=== PATIENT | male | born 1975 | race Caucasian/White ===

== ENCOUNTER 2017-08-18 08:00 | Outpatient (CLI) | payer MEDICAID ==
[2017-08-18 19:22] LABS: HB2 TOTAL 16.2 g/dL; HEMOGLOBIN A1C 1.15 g/dL; HEMOGLOBIN A1C % 8.6 % (4.6-6.2)
== END 2017-08-18 08:01 | disposition home or self-care (01) ==
LOC: LAB.N 08:00
PROVIDERS: ATTEND Physician Assistant Medical
DX: E11.9 Type 2 diabetes mellitus without complications (principal)
CPT/HCPCS: 36415; 83036

== ENCOUNTER 2017-11-18 11:35 | Outpatient (CLI) | payer MEDICAID ==
[2017-11-18 19:50] LABS: HEMOGLOBIN A1C 1.32 g/dL; HEMOGLOBIN A1C % 9.7 % (4.6-6.2)
== END 2017-11-18 11:36 ==
LOC: LAB.N 11:35
PROVIDERS: ATTEND Physician Assistant Medical
DX: E11.9 Type 2 diabetes mellitus without complications (principal)
CPT/HCPCS: 36415; 83036

== ENCOUNTER 2018-03-04 08:00 | Outpatient (CLI) | payer MEDICAID ==
[2018-03-04 13:36] LABS: HB2 TOTAL 18.1 g/dL; HEMOGLOBIN A1C 1.33 g/dL; HEMOGLOBIN A1C % 8.9 % (4.6-6.2)
== END 2018-03-04 23:59 | disposition home or self-care (01) ==
LOC: LAB.N 08:00
PROVIDERS: ATTEND Physician Assistant Medical
DX: E11.65 Type 2 diabetes mellitus with hyperglycemia (principal)
CPT/HCPCS: 36415; 83036

== ENCOUNTER 2018-03-04 09:34 | Inpatient (IN) | payer MEDICAID ==
[2018-03-04] MEDS ORDERED: IOVERSOL 320 100 ML VIAL IVP ONE ×2 (10:00→11:15)
[2018-03-04 10:02] LABS: BASOPHILS # (AUTO) 0.1 10^3/uL (0.0-0.1); BASOPHILS % (AUTO) 0.5 %; EOSINOPHILS % (AUTO) 0.1 %; HGB - HEMOGLOBIN 16.3 g/dL (14.0-18.0); LYMPHOCYTES # (AUTO) 1.8 10^3/uL (1.5-3.5); LYMPHOCYTES % (AUTO) 8.4 %; MEAN CORPUSCULAR HEMOGLOBIN 28.7 pg (27.0-31.0); MEAN CORPUSCULAR HGB CONC 33.9 g/dL (32.0-36.0); MEAN CORPUSCULAR VOLUME 84.5 fL (80.0-94.0); MEAN PLATELET VOLUME 7.8 fL (7.4-11.4); MONOCYTES # (AUTO) 1.6 10^3/uL (0.0-1.0); MONOCYTES % (AUTO) 7.4 %; NEUTROPHILS # (AUTO) 17.7 10^3/uL (1.5-6.6); NEUTROPHILS % (AUTO) 83.6 %; PLT - PLATELET COUNT 321 10^3/uL (130-450); RED BLOOD COUNT 5.68 10^6/uL (4.70-6.10); RED CELL DISTRIBUTION WIDTH 13.1 % (12.0-15.0); WHITE BLOOD COUNT 21.2 x10^3/uL (4.8-10.8)
[2018-03-04 10:18] LABS: GLUCOSE, URINE (UA) >=1000 mg/dL (NEGATIVE); KETONES,URINE (UA) 15 mg/dL (NEGATIVE); LEUKOCYTE ESTERASE, URINE NEGATIVE (NEGATIVE); NITRITE,URINE NEGATIVE (NEGATIVE); OCCULT BLOOD,URINE LARGE (NEGATIVE); PH,URINE 5.5 PH (5.0-7.5); PROTEIN,URINE >=300 mg/dL (NEGATIVE); UROBILINOGEN,URINE 0.2 (NORMAL) E.U./dL (NORMAL)
[2018-03-04 10:19] LABS: CLARITY,URINE CLEAR (CLEAR)
[2018-03-04 10:21] LABS: BILIRUBIN,URINE NEGATIVE (NEGATIVE); ICTOTEST,URINE NEGATIVE
[2018-03-04 10:31] LABS: BACTERIA,URINE Few /HPF (None Seen); CASTS, URINE 0-2 Fine Granular /LPF; SQUAMOUS EPITHELIAL CELL,UR FEW Squamous (<= Few)
[2018-03-04 10:33] LABS: ALBUMIN 4.2 g/dL (3.2-5.5); ALBUMIN/GLOBULIN RATIO 1.1 (1.0-2.2); BILIRUBIN,TOTAL 0.9 mg/dL (0.2-1.0); CALCIUM 8.5 mg/dL (8.5-10.3); TOTAL PROTEIN 8.1 g/dL (6.7-8.2)
[2018-03-04] MEDS ORDERED: SODIUM CHLORIDE 0.9% 1,000 ML IV ONE (10:47)
[2018-03-04] MEDS ORDERED: POTASSIUM CHLOR 10 MEQ/100 ML 10 MEQ/100 ML BAG IV ONE (10:47)
--- NOTE | 2018-03-04 11:56 | CT Report ---
Reason: Mid-to-RLQ abdominal pain. Procedure Date: 03/04/2018 Accession Number: [id number] / [id number] Procedure: CT - Abdomen/Pelvis W/ CPT Code: FULL RESULT: EXAM: CT ABDOMEN AND PELVIS EXAM DATE: 03/04/2018 10:49 AM. CLINICAL HISTORY: [id number] lower quadrant abdominal pain. COMPARISONS: None. TECHNIQUE: Routine helical CT imaging was performed through the abdomen and pelvis. IV contrast: OPTI 320 100mL. Enteric contrast: No. Reconstructions: Coronal and sagittal. In accordance with CT protocol optimization, one or more of the following dose reduction techniques were utilized for this exam: automated exposure control, adjustment of mA and/or KV based on patient size, or use of iterative reconstructive technique. FINDINGS: Lung Bases: Dependent changes. Liver: Normal. No masses. Gallbladder/Bile Ducts: Cholelithiasis, 2 large calculi directly visualized without overt wall thickening or pericholecystic fat stranding centered about the gallbladder. No intrahepatic or extrahepatic biliary ductal dilation. Spleen: Normal. Pancreas: Normal enhancement pattern. Adrenal Glands: Normal. Kidneys: Bilateral renal hypodensities which are too small to characterize and a likely left renal cyst. Peritoneal Cavity/Bowel: There is free intra-abdominal fluid centered about the pancreaticoduodenal axis with additional small quantity of free fluid seen in the dependent pelvis, near the spleen and along the left paracolic gutter. No free air. No pathologic appearing lymphadenopathy. No bowel obstruction. Visualized portions of the appendix are normal. Pelvic Organs: Small quantity of free pelvic fluid. Vasculature: No aneurysms or other significant abnormality. Bones: No significant abnormality. Other: None. IMPRESSION: Free fluid predominantly centered about the duodenum and pancreas. Correlate to possible acute pancreatitis. No evidence of pancreatic necrosis or fluid collection by CT at this time. RADIA The above findings of uncomplicated acute pancreatitis were discussed with Benitez Tubbs by Dr. Lai Cobian at 11:55 hrs on 03/04/18.
[2018-03-04] MEDS ORDERED: ONDANSETRON 4 MG/2 ML VIAL IVP STA (12:18)
[2018-03-04] MEDS ORDERED: MORPHINE 2 MG/ML CARPUJECT IVP STA ×2 (12:18→15:34)
--- NOTE | 2018-03-04 12:23 | ED Physician Documentation ---
PD HPI ABD PAIN - Stated complaint Stated Complaint: ABD PX - Chief complaint Chief Complaint: Abd Pain - History obtained from History obtained from: Patient - History of Present Illness Timing - onset: Yesterday Timing - details: Still present Quality: Pain Location: Periumbilical Radiation: Upper back Associated symptoms: Vomiting (once) Similar symptoms before: Has not had sx before - Additional information Additional information: The patient is a 42-year-old male who presents with periumbilical abdominal pain that started yesterday after eating a tuna sandwich, and has persisted since that time. The pain radiates to his midback. He had one episode of vomiting, and continues to have nausea. He feels "bloated." He also reports having one episode of watery diarrhea. He denies fever or dysuria. He denies history of similar symptoms in the past. He has had no abdominal surgery. His past medical history is significant for diabetes and a previous CVA. He denies alcohol. Review of Systems Constitutional: denies: Fever Nose: denies: Congestion Throat: denies: Sore throat Cardiac: denies: Chest pain / pressure Respiratory: denies: Dyspnea, Cough GI: reports: Abdominal Pain, Nausea, Vomiting, Diarrhea : denies: Dysuria Skin: denies: Rash Musculoskeletal: reports: Back pain (midback). denies: Extremity pain Neurologic: denies: Focal weakness, Numbness, Headache PD PAST MEDICAL HISTORY - Past Medical History Past Medical History: Yes Neuro: CVA Endocrine/Autoimmune: Type 2 diabetes - Past Surgical History Past Surgical History: No - Present Medications Home Medications: Ambulatory Orders Medication Instructions Recorded Confirmed Atorvastatin Calcium [Lipitor] 80 mg PO QPM 03/04/18 03/04/18 Lisinopril 40 mg PO DAILY 03/04/18 Sitagliptin Phosphate [Januvia] 100 mg PO DAILY 03/04/18 03/04/18 metFORMIN [Glucophage] 1,000 mg PO BID 03/04/18 03/04/18 - Allergies Allergies/Adverse Reactions: Allergies Allergy/AdvReac Type Severity Reaction Status Date / Time No Known Drug Allergies Allergy Verified 03/04/18 09:43 - Social History Does the pt smoke?: No Smoking Status: Never smoker Does the pt drink ETOH?: No Does the pt have substance abuse?: No - Immunizations Immunizations are current?: Yes PD ED PE NORMAL - Vitals Vital signs reviewed: Yes (hypertensive) - General General: Alert and oriented X 3, Well developed/nourished, Other (Appears older than stated age.) - HEENT HEENT: Atraumatic, Moist mucous membranes - Neck Neck: No adenopathy, No JVD - Cardiac Cardiac: RRR - Respiratory Respiratory: No respiratory distress, Clear bilaterally - Abdomen Abdomen: Normal bowel sounds, Soft, Other (Rotund abdomen with diffuse discomfort to palpation, without focal tenderness or rebound.) - Back Back: No CVA TTP - Derm Derm: No rash - Extremities Extremities: No edema, No calf tenderness / cord - Neuro Neuro: Alert and oriented X 3, No motor deficit, Normal speech Results - Vitals Vitals: Vital Signs - 24 hr 03/04/18 03/04/18 03/04/18 09:38 11:13 12:30 Temperature 36.2 C L Heart Rate 108 H 88 87 Respiratory 16 16 16 Rate Blood Pressure 154/108 H 165/116 H 163/99 H O2 Saturation 97 96 96 03/04/18 15:25 Temperature Heart Rate 88 Respiratory 16 Rate Blood Pressure 146/93 H O2 Saturation 95 Oxygen O2 Source Room air - Labs Labs: Laboratory Tests 03/04/18 03/04/18 03/04/18 09:55 09:55 10:02 WBC 21.2 H RBC 5.68 Hgb 16.3 Hct 48.0 MCV 84.5 MCH 28.7 MCHC 33.9 RDW 13.1 Plt Count 321 MPV 7.8 Neut # (Auto) 17.7 H Lymph # (Auto) 1.8 [place] # (Auto) 1.6 H Eos # (Auto) 0.0 Baso # (Auto) 0.1 Absolute Nucleated RBC 0.01 Nucleated RBC % 0.0 Sodium 137 Potassium 3.1 L Chloride 98 L Carbon Dioxide 27 Anion Gap 12.0 BUN 23 H Creatinine 1.0 Estimated GFR (MDRD) 82 L Glucose 255 H Calcium 8.5 Total Bilirubin 0.9 AST 55 H ALT 117 H Alkaline Phosphatase 104 Total Protein 8.1 Albumin 4.2 Globulin 3.9 Albumin/Globulin Ratio 1.1 Lipase 780 H Urine Color DARK YELLOW Urine Clarity CLEAR Urine pH 5.5 Ur Specific [place] >=1.030 H Urine Protein >=300 Urine Glucose (UA) >=1000 H Urine Ketones 15 H Urine Occult Blood LARGE H Urine Nitrite NEGATIVE Urine Bilirubin NEGATIVE Urine Urobilinogen 0.2 (NORMAL) Ur Leukocyte Esterase NEGATIVE Urine RBC 6-10 H Urine WBC 0-3 Ur Squamous Epith Cells FEW Squamous Urine Bacteria Few Urine Casts 0-2 Fine Granular Ur Microscopic Review INDICATED Urine Culture Comments NOT INDICATED - Rads (name of study) CT abd/pelvis w/IV contrast Radiology: Prelim report reviewed, EMP read contemporaneously, See rad report (Free fluid predominantly centered about the duodenum and pancreas. Correlate to possible acute pancreatitis. No evidence of pancreatic necrosis or fluid collection by CT at this time.) RUQ U/S Radiology: Prelim report reviewed, EMP read contemporaneously, See rad report (Cholelithiasis without intrahepatic or extrahepatic ductal dilitation.) MRCP Radiology: Prelim report reviewed, See rad report (Moderately edematous pancreatitis. Cholelithiasis without evidence of acute cholecystitis. No biliary ductal dilitation or choledocholithiasis.) PD MEDICAL DECISION MAKING - ED course Complexity details: reviewed results, re-evaluated patient, considered differential, d/w patient, d/w forestry consultant ED course: The patient's presentation is significant for acute pancreatitis, with a lipase of 780. CT scan of the abdomen and pelvis reveals edematous pancreas and cholelithiasis. An MRCP reveals cholelithiasis without evidence of biliary ductal dilatation or choledocholithiasis. Chemistry panel reveals normal bilirubin of 0.9. His potassium is low at 3.1. Treatment in the emergency department included administration of normal saline 1 L IV, ondansetron 4 mg IV, morphine 2 mg IV 2, and supplemental potassium 10 mEq IV. I discussed his condition with Dr. Joyner who defers to medicine service for hospitalization. I discussed his condition with Dr. Malone, who accepts him for further evaluation and treatment. Departure - Departure Disposition: 66 [facility] DC/Xfer Clinical Impression: Hypokalemia Pancreatitis Qualifiers: Chronicity: acute Pancreatitis type: unspecified pancreatitis type Acute pancreatitis complication: unspecified Qualified Code(s): K85.90 - Acute pancreatitis without necrosis or infection, unspecified Cholelithiasis Qualifiers: Cholelithiasis location: gallbladder Cholecystitis presence: without cholecystitis Biliary obstruction: with biliary obstruction Qualified Code(s): K80.21 - Calculus of gallbladder without cholecystitis with obstruction Condition: Stable Discharge Date/Time: 03/04/18 17:00
--- NOTE | 2018-03-04 13:48 | Ultrasound Report ---
Reason: Acute pancreatitis; ? gallstones. Procedure Date: 03/04/2018 Accession Number: [id number] / [id number] Procedure: US - Abdomen Limited CPT Code: FULL RESULT: EXAM: ABDOMEN ULTRASOUND LIMITED, RUQ EXAM DATE: 03/04/2018 01:14 PM. CLINICAL HISTORY: Acute pancreatitis; ? gallstones. COMPARISON: None. TECHNIQUE: Real-time scanning was performed with static images obtained. FINDINGS: Liver: Normal in size and echotexture. 16.3 cm. Main portal vein flow: Hepatopetal. Gallbladder: Large gallstone. No wall thickening or localized tenderness. Biliary System: CBD measures 4.7 mm. No intrahepatic or extrahepatic ductal dilatation. Other: Unremarkable right kidney. Pancreas not well seen. Limited study due to patient habitus and bowel gas. IMPRESSION: Cholelithiasis. RADIA
--- NOTE | 2018-03-04 15:49 | MRI Report ---
Reason: Pancreatitis with gallstones. Procedure Date: 03/04/2018 Accession Number: [id number] / [id number] Procedure: MRI - MRCP W/O CPT Code: FULL RESULT: EXAM: MR ABDOMEN WITHOUT CONTRAST (MR CHOLANGIOPANCREATOGRAPHY) EXAM DATE: 03/04/2018 03:18 PM. CLINICAL HISTORY: Pancreatitis with gallstones. COMPARISON: ABDOMEN LIMITED 03/04/2018 1:14 PM ABDOMEN/PELVIS W/ 03/04/2018 10:37 AM. TECHNIQUE: Multiplanar breath-hold T1 and T2 sequences obtained through the abdomen on an MR scanner. Dedicated 2D and 3D MRCP sequences obtained through the biliary and pancreatic ducts. No intravenous contrast given. FINDINGS: Lung Bases: The lung bases are clear. Liver: The liver has normal size, morphology and signal. No evidence of mass. The intrahepatic bile ducts appear normal. CBD: The extrahepatic ducts appear normal. The CBD is 5 mm in diameter. No choledocholithiasis. Gallbladder: Normal size. 3 dominant gallstones with the largest measuring 3 cm. There are some tiny dependent gallstones in the fundus. There is no bladder wall thickening or pericholecystic edema. Pancreas: Normal in size and contour. Lacy edema throughout the pancreas. The pancreatic duct measures 1 mm in diameter and appears normal with no stone or stricture. Moderate diffuse peripancreatic edema. Spleen: The spleen appears normal. Kidneys and Adrenals: The kidneys appear normal with no mass or hydronephrosis. There are small cysts in the kidneys. The adrenals appear normal. Bowel: The small bowel and colon appear normal with no inflammation or obstruction. Retroperitoneum: No lymphadenopathy. Moderate peripancreatic edema with extension to the left greater than right anterior pararenal fascia. Peritoneum: No roxanna ascites. Vasculature: The abdominal aorta normal in size. Body wall and bones: Unremarkable. IMPRESSION: 1. Moderate edematous pancreatitis. 2. Cholelithiasis without evidence of acute cholecystitis. 3. No biliary ductal dilatation or choledocholithiasis. RADIA
[2018-03-04] MEDS ORDERED: ONDANSETRON ODT 4 MG TABLET TL PRN (16:25)
[2018-03-04] MEDS ORDERED: ONDANSETRON 4 MG/2 ML VIAL IVP PRN (16:25)
[2018-03-04] MEDS ORDERED: PROCHLORPERAZINE 10 MG/2 ML VIAL IVP PRN (16:25)
[2018-03-04] MEDS ORDERED: POTASSIUM CHLORIDE INJ 40 MEQ in SODIUM CHLORIDE 0.9% 480 ML IV ONE (16:46)
--- NOTE | 2018-03-04 16:47 | HISTORY & PHYSICAL EXAMINATION ---
Chief Complaint - Chief Complaint Chief Complaint: abd pain History of Present Illness - Admitted From Admitted From:: HOme/ER - History Obtained From Records Reviewed: [facility] History obtained from: Patient and fiance Exam Limitations: memory and word finding at times - History of Present Illness HPI Comment/Other: He is a 42-year-old white male who suffered a stroke in June 2016 while working in [facility]. Since that time he has had word finding difficulties, memory problems, but is able to ambulate and take care of himself. He moved from the [facility] June [facility]. He is with his fiance, and they moved in with her sister because the cost of living was too high and [place]. They they hope to get better benefits, and a safer place to live. While they feel grateful that they are able to live here, able to live with their sister, the finances are getting difficult and difficult. Social Security has denied him because I do not feel his stroke is severe enough and that he could go to work. 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 He does not have any history of gallstones. He does not drink. He ate a tuna sandwich yesterday afternoon, and about an hour later noticed that he was having periumbilical pain. Indigestion. The pain became stronger and stronger and radiated to his epigastrium and right upper quadrant and to his back. The back pain is just killing him he tells me. His abdomen feels more and more distended and bloated. He feels like he constantly has to belch. He has nausea. But only one episode of vomiting. He denies fever, chills. There is been no change in the color of his stool. He has no blood in his stool. He was seen by Dr. Tubbs in the ER. Temperature was 36.2. Heart rate was 108. Blood pressure 154/108. Respirations 16 and unlabored and he is 97% on room air. He had a tender right upper quadrant and epigastrium. Lipase was 780. AST was 55, ALT 117. Total bili 0.9. White cell count is 21.[address] Tubsb spoke to general surgery, Dr. Joyner. And abdomen pelvis CT shows cholelithiasis with 2 large calculi visualized but no overt wall thickening or ambrosio-cholecystic fat stranding. Spleen was normal. There is free intra- abdominal fluid centered around the pancreatic O duodenal access with additional small quantity of free fluid seen in the dependent pelvis, near the spleen and along the left paracolic gutter. No free air. No aneurysms. The bowel looked normal. It looks like pancreatitis. Abdominal ultrasound shows a common bile duct is 4.7 mm. Gallbladder has a large gallstone. No wall thickening or localized tenderness. An MRCP shows 3 gallstones in the gallbladder measuring 3 cm. Some tiny dependent gallstones in the fundus. No roxanna ascites. Moderate edematous pancreatitis. No biliary ductal dilatation or choledocholithiasis. General surgery feels he is not a surgical candidate at this time. He is brought in as gallstone pancreatitis. He needs to be kept n.p.o., treat nausea and pain, and I will start on single agent Zosyn because of the elevated white cell count. History - Past Medical History Cardiovascular: reports: Hypertension, High cholesterol Neuro: reports: CVA (In [facility]. June 2016. Has left-sided plegia of the arm much worse than the leg. Much of his leg strength is recovered. Has word finding difficulties, slight left facial droop.) Endocrine/Autoimmune: reports: Type 2 diabetes GI: reports: GERD : reports: None HEENT: reports: Other (Wears reading glasses for cheaters. 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 Is getting harder and harder to stay hopeful in view of the fact that his finances are getting worse.), Anxiety Musculoskeletal: reports: Osteoarthritis Derm: reports: None MRSA Hx?: No - Family & Social History Family History Comment/Other: Mom and dad are both in their 70s. Both of them have diabetes. But there is no high blood pressure, cancer, heart attack, or stroke in them. One sister is completely healthy. No diabetes, heart attack, stroke, hypertension. 3 children are healthy. Living arrangement: At home Living Situation: With spouse/s.o., Other (With fiancs sister) Social History Notes: He was born and raised in the [facility]. 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 He is living with his fiance is significant other and hope to get soon. They moved from the [place] area to be here in about June 2017. He had a stroke and renal in June 2016 and was disabled and could no longer work. It is been difficult for him to get disability. Finances are a definite issue. He started smoking at the age of 17 and smoked up to 1 pack/day. Gradually start reducing and his last cigarette was with a stroke in 2016. At that point he was 1 cigarette a day. He has no history of alcohol abuse. He is never done recreational substance abuse. - Substance History Use: Uses substance without health or social issues: NONE Abuse: Recurrent use of substance despite neg consequences: NONE Dependence: Experiences withdrawal or developed tolerances: NONE - POLST Patient has POLST: No POLST Status: Full Code Meds/Allgy - Home Medications Home Medications: Ambulatory Orders Medication Instructions Recorded Confirmed Atorvastatin Calcium [Lipitor] 80 mg PO QPM 03/04/18 03/04/18 Lisinopril 40 mg PO DAILY 03/04/18 Sitagliptin Phosphate [Januvia] 100 mg PO DAILY 03/04/18 03/04/18 metFORMIN [Glucophage] 1,000 mg PO BID 03/04/18 03/04/18 - Allergies Allergies/Adverse Reactions: Allergies Allergy/AdvReac Type Severity Reaction Status Date / Time No Known Drug Allergies Allergy Verified 03/04/18 09:43 Review of Systems - Constitutional Constitutional: denies: Fatigue, Fever, Chills, Malaise, Weight gain, Weight loss - Eyes Eyes: reports: Vision loss. denies: Pain, Irritation, Amaurosis, Blurred vision - Ears, Nose & Throat Ears, Nose & Throat: reports: Nasal congestion (Constant for 2-3 years), Postnasal drainage (Constant for 2-3 years), Dentures (His dentures broke before he got here. So he has no teeth.). denies: Ear pain, Hearing loss, Hearing aids, Tinnitus, Sore throat, Hoarseness - Cardiovascular Cariovascular: denies: Irregular heart rate, Palpitations, Chest pain, Edema, Lightheadedness, Syncope, Exertional dyspnea - Respiratory Respiratory: denies: Cough, Sputum production, Wheezing, Snoring, Hemoptysis, Orthopnea, SOB at rest - Gastrointestinal Gastrointestinal: reports: Abdominal pain, Abdominal distention, Nausea, Vomiting, Other (All of the symptoms were today.) - Genitourinary Genitourinary: denies: Dysuria, Frequency, Urgency, Hematuria - Musculoskeletal Musculoskeletal: reports: Back pain (Today.), Stiffness (Left shoulder, elbow, and arm from his stroke. He is supposed to be getting PT and OT starting Wednesday) - Integumentary Integumentary: denies: Rash, Pruritis - Neurological Neurological: reports: Focal weakness (Minimal, left leg. Still 50% loss left arm and hand.), Headache (Constant sinus headache), Memory problems (Residual from stroke.), Pre-existing deficit (Left upper extremity plegia residual from left stroke.), Slurred speech (Residual from stroke.). denies: General weakness, Seizures - Psychiatric Psychiatric: reports: Depression. denies: Suicidal, Delusions, Hallucinations, Homicidal - Endocrine Endocrine: denies: Polyuria, Polydypsia, Polyphagia - Hematologic/Lymphatic Hematologic/Lymphatic: denies: Anemia, Bruising, Petechiae, Blood clots Prior Level of Functionality: He is still ambulatory and independent to feed himself, dress himself. He can no longer drive. Because he has problems with memory and cognition, his fiance takes care of all the financial things. He does not use a cane or a walker. Exam - Vital Signs Reviewed Vital Signs: Yes Vital Signs: Vital Signs x48h Temp Pulse Resp BP Pulse Ox 03/04/18 16:45 36.5 C 83 16 159/88 H 96 03/04/18 15:25 88 16 146/93 H 95 03/04/18 12:30 87 16 163/99 H 96 03/04/18 11:13 88 16 165/116 H 96 03/04/18 09:38 36.2 C L 108 H 16 154/108 H 97 - Physical Exam General Appearance: positive: Alert, Moderate distress (His abdominal pain in his epigastrium that radiates straight through to his back comes and goes. He will grimace with pain, and grunts a little bit sometimes.), Other (Middle-aged white male who looks older than his stated age, bearded, wearing reading glasses, slightly slurred speech and a left facial droop.) Eyes Bilateral: positive: PERRL, EOMI ENT: positive: Dry mucous membranes Neck: positive: No JVD. negative: Stiff neck, Carotid bruit Respiratory: positive: Chest non-tender. negative: Wheezes, Rales, Rhonchi Cardiovascular: positive: Regular rate & rhythm, Systolic murmur. negative: Gallop/S4, Friction rub Peripheral Pulses: positive: 1+ Abdomen: positive: No organomegaly, Tenderness (Epigastrium and left upper quadrant, mild right upper quadrant. Nothing in the lower abdomen), Other (Hypoactive bowel sounds. Slight bloating and distention diffusely.). negative: Guarding, Rebound, Hepatomegaly, Splenomegaly Skin: positive: Warm, Dry Extremities: positive: Full ROM, No pedal edema Neurologic/Psychiatric: positive: Oriented x3, Facial droop, Slurred/abnml speech. negative: Motor nml (Left upper extremity weakness. He is at a 3/5+. Right extremity is normal. Left leg is 4-/5+. Right leg is 5+/5+.) Reflexes: Bicep (R): 1+, Bicep (L): 0, Knee (R): 1+, Knee (L): 0, Ankle (R): 0, Ankle (L): 0 Conclusion/Plan - Problem List (1) Gallstone pancreatitis Conclusion/Plan: Patient presents as epigastric pain radiating through his back, with some nausea. Pain is been agonizing in his back. No fever, no chills. On lab work he has elevated white cell count, elevated liver enzymes, elevated lipase. An evaluation for gallstone pancreatitis, it looks like he may have passed a stone and there is nothing in the common bile duct. General surgery is aware of the patient. Plan: Calculate [place]'s criteria in the morning Inpatient status Single agent Zosyn therapy because of the elevated white cell count N.p.o. IV fluids for hydration Antiemetics for nausea Opioids for pain All of this was discussed with the patient and his fiance. Anatomy was drawn on the board. Explained to him twice. He definitely has problems with cognition and understanding. 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 He will placed on sliding scale insulin. No metformin at this time until able to eat or drink normally. 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 I will resume medication with either IV Lopressor IV ROMINA inhibitor if his blood pressure rises to the point of needing treatment. All day long he has been hypertensive at 140s-160s. As such we will start IV lisinopril/enalapril. Qualifiers: Hypertension type: essential hypertension Qualified Code(s): I10 - Essential (primary) hypertension (4) History of hemorrhagic stroke with residual hemiparesis Conclusion/Plan: As well as speech. Cognitive deficit. Plan: Resume aspirin and statin when he is able to take p.o. Will ask PT and OT to see him if they can help him with his hand therapy while he is here. He is very anxious about starting that maintaining that. He was already scheduled in the outpatient setting to start 2 days from now. Social work consult. I do not know what services he has obtained. See social work and help him with disability status, and other services that may help him. (5) Full code status Conclusion/Plan: He says that at this time he still wants to keep ongoing even if he he has further stroke, or is a disabled to end up living in a shelter. He understands what a full code means after explained to him CPR, intubation, chest compressions, cardioversion. He has never thought about quality of life, never thought about what it would be like to be severely disabled and living in a shelter. He and his partner will have conversations in the next few weeks as they trying to find quality of life and what makes him happy and what he likes to do. He will then sure that with his primary care provider. (6) Hypokalemia Conclusion/Plan: Supplement IV - Lab Results Fish Bones: 03/04/18 09:55 03/04/18 09:55 - Diagnostic Imaging Results Diagnostic Imaging Results: positive: Final report reviewed Core Measures - Anticipated LOS I expect patient to be DC'd or transferred within 96 hours.: Yes - DVT/VTE - Prophylaxis VTE/DVT Device ordered at admit?: Yes
[2018-03-04] MEDS: SODIUM CHLORIDE 0.9% 1,000 ML IV SCH (17:20)
[2018-03-04] MEDS: PIPERACILLIN/TAZOBACTAM 3.375 GM in SODIUM CHLORIDE 0.9% MINIBAG 100 ML IV SCH (17:20)
[2018-03-04] MEDS: MORPHINE 2 MG/ML CARPUJECT IVP PRN ×3 (17:21→21:42)
[2018-03-04] MEDS: INSULIN REGULAR HUMAN 100 UNIT/1 ML 10 ML MDV SUBQ SCH (17:22)
[2018-03-04] MEDS: SODIUM CHLORIDE FLUSH 0.9% 10 ML SYRINGE IVP SCH (17:22)
[2018-03-04] MEDS: SODIUM CHLORIDE FLUSH 0.9% 10 ML SYRINGE IVP PRN (19:35)
[2018-03-05] MEDS: SODIUM CHLORIDE 0.9% 1,000 ML IV SCH
[2018-03-05] MEDS: MORPHINE 2 MG/ML CARPUJECT IVP PRN ×6 (00:14→18:46)
[2018-03-05] MEDS: PIPERACILLIN/TAZOBACTAM 3.375 GM in SODIUM CHLORIDE 0.9% MINIBAG 100 ML IV SCH ×5 (00:19→22:24)
[2018-03-05] MEDS: INSULIN REGULAR HUMAN 100 UNIT/1 ML 10 ML MDV SUBQ SCH ×4 (00:26→18:23)
[2018-03-05] MEDS: SODIUM CHLORIDE FLUSH 0.9% 10 ML SYRINGE IVP SCH ×4 (01:28→23:51)
[2018-03-05 06:14] LABS: BASOPHILS # (AUTO) 0.1 10^3/uL (0.0-0.1); BASOPHILS % (AUTO) 0.4 %; EOSINOPHILS % (AUTO) 0.1 %; HGB - HEMOGLOBIN 14.1 g/dL (14.0-18.0); LYMPHOCYTES # (AUTO) 1.2 10^3/uL (1.5-3.5); LYMPHOCYTES % (AUTO) 5.7 %; MEAN CORPUSCULAR HEMOGLOBIN 28.6 pg (27.0-31.0); MEAN CORPUSCULAR HGB CONC 32.9 g/dL (32.0-36.0); MEAN CORPUSCULAR VOLUME 87.1 fL (80.0-94.0); MEAN PLATELET VOLUME 7.7 fL (7.4-11.4); MONOCYTES # (AUTO) 1.8 10^3/uL (0.0-1.0); MONOCYTES % (AUTO) 8.3 %; NEUTROPHILS # (AUTO) 18.8 10^3/uL (1.5-6.6); NEUTROPHILS % (AUTO) 85.5 %; PLT - PLATELET COUNT 246 10^3/uL (130-450); RED BLOOD COUNT 4.92 10^6/uL (4.70-6.10); WHITE BLOOD COUNT 21.9 x10^3/uL (4.8-10.8)
[2018-03-05] MEDS: SODIUM CHLORIDE FLUSH 0.9% 10 ML SYRINGE IVP PRN (06:19)
[2018-03-05 06:21] LABS: ALBUMIN 3.2 g/dL (3.2-5.5); BILIRUBIN,TOTAL 1.1 mg/dL (0.2-1.0); CALCIUM 7.2 mg/dL (8.5-10.3); CREATININE 1.1 mg/dL (0.6-1.2); TOTAL PROTEIN 6.4 g/dL (6.7-8.2)
[2018-03-05] MEDS ORDERED: POTASSIUM CHLOR 10 MEQ/100 ML 10 MEQ/100 ML BAG IV ONE ×2 (06:55→09:00)
[2018-03-05 07:00] LABS: PLATELET ESTIMATE, MANUAL NORMAL (130-450,000) (NORMAL)
[2018-03-05 07:01] LABS: RBC MORPHOLOGY (MULTIPLE) NORMAL APPEARANCE (NORMAL)
[2018-03-05] MEDS: ENALAPRILAT 1.25 MG/ML VIAL IVP SCH ×4 (09:35→23:51)
--- NOTE | 2018-03-05 09:47 | CONSULTATION NOTE ---
Referring Provider Consult Date: 03/05/18 Chief Complaint - Chief Complaint Chief Complaint: abdominal pain History of Present Illness - History of Present Illness HPI Comment/Other: 42 yo man with h/o a hypertensive hemorrhagic stroke and controlled diabetes, presented to the ER with sudden onset abdominal pain. He was found to have pancreatitis. He is not a drinker and has numerous gallstones in the GB. An MRCP confirmed no stones in the ducts. Admitted for medical managament of his pancreatitis. States today he is feeling better, but still having some pain. History - Past Medical History Cardiovascular: reports: Hypertension, High cholesterol Neuro: reports: CVA Endocrine/Autoimmune: reports: Type 2 diabetes GI: reports: GERD : reports: None HEENT: reports: Other (Wears reading glasses for cheaters. 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 Is getting harder and harder to stay hopeful in view of the fact that his finances are getting worse.), Anxiety Musculoskeletal: reports: Osteoarthritis Derm: reports: None MRSA Hx?: No - Family & Social History Family History Comment/Other: Mom and dad are both in their 70s. Both of them have diabetes. But there is no high blood pressure, cancer, heart attack, or stroke in them. One sister is completely healthy. No diabetes, heart attack, s troke, hypertension. 3 children are healthy. Living arrangement: At home Living Situation: With spouse/s.o., Other (With fiancs sister) Social History Notes: He was born and raised in the [facility]. 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 He is living with his fiance is significant other and hope to get soon. They moved from the [place] area to be here in about June 2017. He had a stroke and renal in June 2016 and was disabled and could no longer work. It is been difficult for him to get disability. Finances are a definite issue. He started smoking at the age of 17 and smoked up to 1 pack/day. Gradually start reducing and his last cigarette was with a stroke in 2016. At that point he was 1 cigarette a day. He has no history of alcohol abuse. He is never done recreational substance abuse. - Substance History Use: Uses substance without health or social issues: NONE Abuse: Recurrent use of substance despite neg consequences: NONE Dependence: Experiences withdrawal or developed tolerances: NONE - POLST Patient has POLST: No POLST Status: Full Code Meds/Allgy - Home Medications Home Medications: Ambulatory Orders Medication Instructions Recorded Confirmed Atorvastatin Calcium [Lipitor] 80 mg PO QPM 03/04/18 03/04/18 Lisinopril 40 mg PO DAILY 03/04/18 Sitagliptin Phosphate [Januvia] 100 mg PO DAILY 03/04/18 03/04/18 metFORMIN [Glucophage] 1,000 mg PO BID 03/04/18 03/04/18 - Allergies Allergies/Adverse Reactions: Allergies Allergy/AdvReac Type Severity Reaction Status Date / Time No Known Drug Allergies Allergy Verified 03/04/18 09:43 Review of Systems - Gastrointestinal Gastrointestinal: reports: Abdominal pain Exam - Vital Signs Vital Signs: Vital Signs x48h Temp Pulse Resp BP BP Pulse Ox 03/05/18 09:36 91 148/88 H 03/05/18 07:45 36.5 C 95 15 154/97 H 95 - Physical Exam General Appearance: positive: No acute distress Eyes Bilateral: positive: Normal inspection ENT: positive: ENT inspection nml Neck: positive: Nml inspection Respiratory: positive: Chest non-tender Cardiovascular: positive: Regular rate & rhythm Abdomen: positive: Tenderness Back: positive: Nml inspection Skin: positive: Color nml Extremities: positive: Non-tender Neurologic/Psychiatric: positive: Oriented x3 Conclusion/Plan - Diagnosis Diagnosis: Gallstone pancreatitis - Plan Plan: Pt most likely with gallstone pancreatitis and a stone that passed spontaneously. Plan to remove the gallbladder prior to discharge, once his pancreatitis resolves to prevent future episodes. Pt is in agreement with this plan. His diabetes is well-controlled and his CVA is over 1 year old, although he does have some residual deficits. - Lab Results Fish Bones: 03/05/18 05:40 03/05/18 05:40
[2018-03-05] MEDS ORDERED: POTASSIUM CHLORIDE INJ 40 MEQ in SODIUM CHLORIDE 0.9% 480 ML IV ONE (10:00)
[2018-03-05] MEDS: POLYETHYLENE GLYCOL 3350 17 GM PACKET PO SCH (10:06)
[2018-03-05] MEDS ORDERED: METHOCARBAMOL 500 MG TABLET PO PRN (14:57)
--- NOTE | 2018-03-05 15:02 | PROVIDER PROGRESS NOTE ---
Subjective - Prog Note Date Prog Note Date: 03/05/18 Prog Note Time: 15:05 - Subjective Subjective: He still has pain. It is wincing, stabbing, comes and goes. Left flank, left upper quadrant. No nausea and vomiting. No change in stool. No chest pain, shortness of breath Current Medications - Current Medications Current Medications: Active Medications Enalaprilat (Vasotec Inj) 1.25 mg IVP Q6HR [facility] Last Admin: 03/05/18 11:47 Dose: 1.25 mg Piperacillin Sod/Tazobactam (Sod 3.375 gm/ Sodium Chloride) 100 mls @ 200 mls/hr IV Q6H [facility] Last Infusion: 03/05/18 11:30 Dose: Infused Lactated Ringer's (Lr) 1,000 mls @ 125 mls/hr IV .Q8H [facility] Insulin Human Regular (Novolin R) 2 - 10 unit SUBQ Q6HR [facility]; Protocol Last Admin: 03/05/18 11:49 Dose: 2 unit Ketorolac Tromethamine (Toradol Inj (15mg)) 15 mg IVP Q6HR PRN PRN Reason: PAIN Stop: 03/10/18 14:56 Loratadine (Claritin) 10 mg PO DAILY [facility] Methocarbamol (Robaxin) 500 mg PO QPM PRN PRN Reason: SHOULDER PAIN Morphine Sulfate (Morphine (Carpuject)) 2 mg IVP Q2HR PRN PRN Reason: Pain 8 to 10 Last Admin: 03/05/18 11:44 Dose: 2 mg Ondansetron HCl (Zofran Inj) 4 mg IVP Q6HR PRN PRN Reason: Nausea / Vomiting Ondansetron HCl (Zofran Odt) 4 mg TL Q6HR PRN PRN Reason: Nausea / Vomiting Polyethylene Glycol (Miralax) 17 gm PO DAILY [facility] Last Admin: 03/05/18 10:06 Dose: Not Given Prochlorperazine Edisylate (Compazine Inj) 10 mg IVP Q6HR PRN PRN Reason: Nausea / Vomiting Sodium Chloride (Normal Saline Flush 0.9%) 10 ml IVP PRN PRN PRN Reason: NEEDED PER PROVIDER ORDERS Last Admin: 03/05/18 06:19 Dose: 10 ml Sodium Chloride (Normal Saline Flush 0.9%) 10 ml IVP 0100,0900,1700 [facility] Last Admin: 03/05/18 08:15 Dose: 10 ml Atorvastatin Calcium [Lipitor] 80 mg PO QPM 03/04/18 Sitagliptin Phosphate [Januvia] 100 mg PO DAILY 03/04/18 metFORMIN [Glucophage] 1,000 mg PO BID 03/04/18 Aspirin Chewable [[place] Parker Aspirin] 81 mg PO DAILY 03/05/18 Loratadine [Claritin] 10 mg PO DAILY 03/05/18 Methocarbamol 500 mg PO QPM PRN 03/05/18 Objective - Vital Signs/Intake & Output Reviewed Vital Signs: Yes Vital Signs: Vital Signs x48h Temp Pulse Resp BP BP Pulse Ox 03/05/18 13:09 76 143/86 H 03/05/18 12:40 97 137/84 H 03/05/18 12:25 92 128/95 H 03/05/18 12:20 95 142/94 H 03/05/18 12:10 91 139/94 H 03/05/18 12:00 36.9 C 89 94 H 143/85 H 03/05/18 11:45 85 155/83 H 03/05/18 10:56 144/90 H 03/05/18 10:35 132/79 H 03/05/18 10:20 141/77 H 03/05/18 10:04 133/81 H 03/05/18 09:59 147/82 H 03/05/18 09:55 145/83 H 03/05/18 09:36 91 148/88 H 03/05/18 07:45 36.5 C 95 15 154/97 H 95 Intake & Output: Intake & Output 03/02/18 03/03/18 03/04/18 03/05/18 23:59 23:59 23:59 23:59 Intake Total 3200.000 1706 Output Total 450 500 Balance 2750.000 1206 - Objective General Appearance: positive: No acute distress, Alert, Other (Edentulous middle-aged white male who looks older than stated age) Eyes Bilateral: positive: PERRL ENT: positive: Other (Oral mucosa much better than yesterday where he was quite dry. Today not as dry) Neck: positive: No JVD. negative: Stiff neck, Carotid bruit Respiratory: positive: Chest non-tender. negative: Wheezes, Rales, Rhonchi Cardiovascular: positive: Regular rate & rhythm. negative: Gallop/S4, Friction rub Abdomen: positive: Nml bowel sounds, Tenderness (Epigastrium left upper quadrant and left flank). negative: Guarding, Rebound, Hepatomegaly, Splenomegaly Skin: positive: Warm, Dry Extremities: positive: Full ROM, No pedal edema Neurologic/Psychiatric: positive: Oriented x3, Facial droop, Slurred/abnml speech. negative: Motor nml (Left upper extremity weakness and plegia is residual of his old stroke.) - Lab Results Fish Bones: 03/05/18 05:40 03/05/18 05:40 Other Labs: Lab Results x24hrs 03/05/18 03/05/18 03/05/18 Range/Units 11:43 05:49 05:40 WBC (4.8-10.8) x10^3/uL RBC (4.70-6.10) 10^6/uL Hgb (14.0-18.0) g/dL Hct (42.0-52.0) % MCV (80.0-94.0) fL MCH (27.0-31.0) pg MCHC (32.0-36.0) g/dL RDW (12.0-15.0) % Plt Count (130-450) 10^3/uL MPV (7.4-11.4) fL Neut # (Auto) (1.5-6.6) 10^3/uL Lymph # (Auto) (1.5-3.5) 10^3/uL [place] # (Auto) (0.0-1.0) 10^3/uL Eos # (Auto) (0.0-0.7) 10^3/uL Baso # (Auto) (0.0-0.1) 10^3/uL Absolute Nucleated RBC x10^3/uL Nucleated RBC % /100WBC Manual Slide Review Platelet Estimate (NORMAL) RBC Morph Micro Appear (NORMAL) Sodium 140 (135-145) mmol/L Potassium 3.2 L (3.5-5.0) mmol/L Chloride 109 (101-111) mmol/L Carbon Dioxide 23 (21-32) mmol/L Anion Gap 8.0 (6-13) BUN 16 (6-20) mg/dL Creatinine 1.1 (0.6-1.2) mg/dL Estimated GFR (MDRD) 73 L (>89) Glucose 155 H (70-100) mg/dL POC Whole Bld Glucose 149 H 146 H (70 - 100) mg/dL Calcium 7.2 L (8.5-10.3) mg/dL Total Bilirubin 1.1 H (0.2-1.0) mg/dL AST 29 (10-42) IU/L ALT 67 H (10-60) IU/L Alkaline Phosphatase 72 (42-121) IU/L Total Protein 6.4 L (6.7-8.2) g/dL Albumin 3.2 (3.2-5.5) g/dL Globulin 3.2 (2.1-4.2) g/dL Albumin/Globulin Ratio 1.0 (1.0-2.2) Amylase 318 H (28-100) U/L Lipase 160 H (22-51) U/L 03/05/18 03/04/18 03/04/18 Range/Units 05:40 23:35 20:26 WBC 21.9 H (4.8-10.8) x10^3/uL RBC 4.92 (4.70-6.10) 10^6/uL Hgb 14.1 (14.0-18.0) g/dL Hct 42.9 (42.0-52.0) % MCV 87.1 (80.0-94.0) fL MCH 28.6 (27.0-31.0) pg MCHC 32.9 (32.0-36.0) g/dL RDW 13.0 (12.0-15.0) % Plt Count 246 (130-450) 10^3/uL MPV 7.7 (7.4-11.4) fL Neut # (Auto) 18.8 H (1.5-6.6) 10^3/uL Lymph # (Auto) 1.2 L (1.5-3.5) 10^3/uL [place] # (Auto) 1.8 H (0.0-1.0) 10^3/uL Eos # (Auto) 0.0 (0.0-0.7) 10^3/uL Baso # (Auto) 0.1 (0.0-0.1) 10^3/uL Absolute Nucleated RBC 0.00 x10^3/uL Nucleated RBC % 0.0 /100WBC Manual Slide Review Indicated Platelet Estimate NORMAL (130-450,000) (NORMAL) RBC Morph Micro Appear NORMAL APPEARANCE (NORMAL) Sodium (135-145) mmol/L Potassium (3.5-5.0) mmol/L Chloride (101-111) mmol/L Carbon Dioxide (21-32) mmol/L Anion Gap (6-13) BUN (6-20) mg/dL Creatinine (0.6-1.2) mg/dL Estimated GFR (MDRD) (>89) Glucose (70-100) mg/dL POC Whole Bld Glucose 143 H 168 H (70 - 100) mg/dL Calcium (8.5-10.3) mg/dL Total Bilirubin (0.2-1.0) mg/dL AST (10-42) IU/L ALT (10-60) IU/L Alkaline Phosphatase (42-121) IU/L Total Protein (6.7-8.2) g/dL Albumin (3.2-5.5) g/dL Globulin (2.1-4.2) g/dL Albumin/Globulin Ratio (1.0-2.2) Amylase (28-100) U/L Lipase (22-51) U/L 03/04/18 Range/Units 17:05 WBC (4.8-10.8) x10^3/uL RBC (4.70-6.10) 10^6/uL Hgb (14.0-18.0) g/dL Hct (42.0-52.0) % MCV (80.0-94.0) fL MCH (27.0-31.0) pg MCHC (32.0-36.0) g/dL RDW (12.0-15.0) % Plt Count (130-450) 10^3/uL MPV (7.4-11.4) fL Neut # (Auto) (1.5-6.6) 10^3/uL Lymph # (Auto) (1.5-3.5) 10^3/uL [place] # (Auto) (0.0-1.0) 10^3/uL Eos # (Auto) (0.0-0.7) 10^3/uL Baso # (Auto) (0.0-0.1) 10^3/uL Absolute Nucleated RBC x10^3/uL Nucleated RBC % /100WBC Manual Slide Review Platelet Estimate (NORMAL) RBC Morph Micro Appear (NORMAL) Sodium (135-145) mmol/L Potassium (3.5-5.0) mmol/L Chloride (101-111) mmol/L Carbon Dioxide (21-32) mmol/L Anion Gap (6-13) BUN (6-20) mg/dL Creatinine (0.6-1.2) mg/dL Estimated GFR (MDRD) (>89) Glucose (70-100) mg/dL POC Whole Bld Glucose 185 H (70 - 100) mg/dL Calcium (8.5-10.3) mg/dL Total Bilirubin (0.2-1.0) mg/dL AST (10-42) IU/L ALT (10-60) IU/L Alkaline Phosphatase (42-121) IU/L Total Protein (6.7-8.2) g/dL Albumin (3.2-5.5) g/dL Globulin (2.1-4.2) g/dL Albumin/Globulin Ratio (1.0-2.2) Amylase (28-100) U/L Lipase (22-51) U/L ABX Reporting Has patient been on IV antibiotics over the past 48 hours?: Yes Assessment/Plan - Problem List (1) Gallstone pancreatitis Impression: Patient presents as epigastric pain radiating through his back, with some nausea. Pain is been agonizing in his back. No fever, no chills. On lab work he has elevated white cell count, elevated liver enzymes, elevated lipase. An evaluation for gallstone pancreatitis, it looks like he may have passed a stone and there is nothing in the common bile duct. General surgery is aware of the patient.Using the data we have she has one point on Ursa's criteria on admission. And 3 points cumulative after 24 hours. Severe pancreatitis is unlikely but there is still a 15% predicted mortality. Plan: Inpatient status Single agent Zosyn therapy because of the elevated white cell count, Day #2 N.p.o. IV fluids for hydration, Changed to lactated Ringer's Antiemetics for nausea Opioids for pain All of this was discussed with the patient and his fiance. Anatomy was drawn on the board. Explained to him twice. He definitely has problems with cognition and understanding. The discussion was held on admission. It was repeated again today. General surgery plans on taking out his gallbladder on March 07. 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 He will placed on sliding scale insulin. No metformin at this time until able to eat or drink normally. 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 I will resume medication with either IV Lopressor IV ROMINA inhibitor if his blood pressure rises to the point of needing treatment. All day long he has been hypertensive at 140s-160s. As such we will start IV lisinopril/enalapril. Qualifiers: Hypertension type: essential hypertension Qualified Code(s): I10 - Ess ential (primary) hypertension (4) History of hemorrhagic stroke with residual hemiparesis Conclusion/Plan: As well as speech. Cognitive deficit. Plan: Resume aspirin and statin when he is able to take p.o. Will ask PT and OT to see him if they can help him with his hand therapy while he is here. He is very anxious about starting that maintaining that. He was already scheduled in the outpatient setting to start 2 days from now. Social work consult. I do not know what services he has obtained. See social work and help him with disability status, and other services that may help him. (5) Full code status Conclusion/Plan: He says that at this time he still wants to keep ongoing even if he he has further stroke, or is a disabled to end up living in a usp. He understands what a full code means after explained to him CPR, intubation, chest compressions, cardioversion. He has never thought about quality of life, never thought about what it would be like to be severely disabled and living in a usp. He and his partner will have conversations in the next few weeks as they trying to find quality of life and what makes him happy and what he likes to do. He will then sure that with his primary care provider. (6) Hypokalemia Conclusion/Plan: Supplement IV Again today
[2018-03-05] MEDS: KETOROLAC 15 MG/ML VIAL IVP PRN ×2 (15:05→20:59)
[2018-03-05] MEDS: LACTATED RINGERS 1,000 ML IV SCH (15:47)
[2018-03-06] MEDS: LACTATED RINGERS 1,000 ML IV SCH ×3 (00:08→19:11)
[2018-03-06] MEDS: INSULIN REGULAR HUMAN 100 UNIT/1 ML 10 ML MDV SUBQ SCH ×4 (00:09→18:23)
[2018-03-06] MEDS: MORPHINE 2 MG/ML CARPUJECT IVP PRN ×5 (01:00→21:56)
[2018-03-06] MEDS: PIPERACILLIN/TAZOBACTAM 3.375 GM in SODIUM CHLORIDE 0.9% MINIBAG 100 ML IV SCH ×4 (05:17→22:57)
[2018-03-06] MEDS: KETOROLAC 15 MG/ML VIAL IVP PRN ×3 (06:06→19:10)
[2018-03-06] MEDS: SODIUM CHLORIDE FLUSH 0.9% 10 ML SYRINGE IVP PRN ×4 (06:07→21:56)
[2018-03-06 06:09] LABS: BASOPHILS # (AUTO) 0.1 10^3/uL (0.0-0.1); BASOPHILS % (AUTO) 0.7 %; EOSINOPHILS % (AUTO) 0.2 %; HGB - HEMOGLOBIN 12.9 g/dL (14.0-18.0); LYMPHOCYTES # (AUTO) 1.3 10^3/uL (1.5-3.5); MEAN CORPUSCULAR HGB CONC 33.6 g/dL (32.0-36.0); MEAN CORPUSCULAR VOLUME 86.1 fL (80.0-94.0); MEAN PLATELET VOLUME 7.6 fL (7.4-11.4); MONOCYTES # (AUTO) 1.3 10^3/uL (0.0-1.0); MONOCYTES % (AUTO) 6.8 %; NEUTROPHILS # (AUTO) 16.3 10^3/uL (1.5-6.6); NEUTROPHILS % (AUTO) 85.3 %; PLT - PLATELET COUNT 213 10^3/uL (130-450); RED BLOOD COUNT 4.44 10^6/uL (4.70-6.10); RED CELL DISTRIBUTION WIDTH 13.3 % (12.0-15.0); WHITE BLOOD COUNT 19.1 x10^3/uL (4.8-10.8)
[2018-03-06] MEDS: ENALAPRILAT 1.25 MG/ML VIAL IVP SCH ×3 (06:14→18:15)
[2018-03-06 06:35] LABS: ALBUMIN 2.8 g/dL (3.2-5.5); ALBUMIN/GLOBULIN RATIO 0.8 (1.0-2.2); BILIRUBIN,TOTAL 1.3 mg/dL (0.2-1.0); CALCIUM 7.1 mg/dL (8.5-10.3); TOTAL PROTEIN 6.2 g/dL (6.7-8.2)
--- NOTE | 2018-03-06 07:32 | PROVIDER PROGRESS NOTE ---
Subjective - Prog Note Date Prog Note Date: 03/06/18 Prog Note Time: 10:11 - Subjective Pt reports feeling: Improved Subjective: He is really really hungry. Still has back pain. This all started as epigastric pain radiating to the back. No more epigastric pain, just the back pain. He has not had any fevers. He has been mildly hypertensive at 146-173 systolic. He is saturating well. He remains hypokalemic, mildly hyperglycemic. White cell count has come from 21-19. He would like to eat. Current Medications - Current Medications Current Medications: Active Medications Enalaprilat (Vasotec Inj) 1.25 mg IVP Q6HR [facility] Piperacillin Sod/Tazobactam (Sod 3.375 gm/ Sodium Chloride) 100 mls @ 200 mls/hr IV Q6H [facility] Last Infusion: 03/06/18 06:22 Dose: Infused Lactated Ringer's (Lr) 1,000 mls @ 125 mls/hr IV .Q8H [facility] Last Admin: 03/06/18 00:08 Dose: 125 mls/hr Potassium Chloride (Potassium Chloride) 10 meq in 100 mls @ 100 mls/hr IV Q1H [facility] Stop: 03/06/18 15:59 Insulin Human Regular (Novolin R) 2 - 10 unit SUBQ Q6HR [facility]; Protocol Last Admin: 03/06/18 05:55 Dose: Not Given Ketorolac Tromethamine (Toradol Inj (15mg)) 15 mg IVP Q6HR PRN PRN Reason: PAIN Stop: 03/10/18 14:56 Last Admin: 03/06/18 06:06 Dose: 15 mg Loratadine (Claritin) 10 mg PO DAILY [facility] Methocarbamol (Robaxin) 500 mg PO QPM PRN PRN Reason: SHOULDER PAIN Morphine Sulfate (Morphine (Carpuject)) 2 mg IVP Q2HR PRN PRN Reason: Pain 8 to 10 Last Admin: 03/06/18 01:00 Dose: 2 mg Ondansetron HCl (Zofran Inj) 4 mg IVP Q6HR PRN PRN Reason: Nausea / Vomiting Ondansetron HCl (Zofran Odt) 4 mg TL Q6HR PRN PRN Reason: Nausea / Vomiting Polyethylene Glycol (Miralax) 17 gm PO DAILY [facility] Last Admin: 03/05/18 10:06 Dose: Not Given Potassium Chloride (K-Dur) 20 meq PO DAILYWM [facility] Prochlorperazine Edisylate (Compazine Inj) 10 mg IVP Q6HR PRN PRN Reason: Nausea / Vomiting Sodium Chloride (Normal Saline Flush 0.9%) 10 ml IVP PRN PRN PRN Reason: NEEDED PER PROVIDER ORDERS Last Admin: 03/06/18 06:07 Dose: 10 ml Sodium Chloride (Normal Saline Flush 0.9%) 10 ml IVP 0100,0900,1700 [facility] Last Admin: 03/05/18 23:51 Dose: 10 ml Atorvastatin Calcium [Lipitor] 80 mg PO QPM 03/04/18 Sitagliptin Phosphate [Januvia] 100 mg PO DAILY 03/04/18 metFORMIN [Glucophage] 1,000 mg PO BID 03/04/18 Aspirin Chewable [[facility] Parker Aspirin] 81 mg PO DAILY 03/05/18 Loratadine [Claritin] 10 mg PO DAILY 03/05/18 Methocarbamol 500 mg PO QPM PRN 03/05/18 Objective - Vital Signs/Intake & Output Reviewed Vital Signs: Yes Vital Signs: Vital Signs x48h Temp Pulse Resp BP Pulse Ox 03/06/18 07:17 84 146/84 H 03/06/18 07:00 143/83 H 03/06/18 06:45 84 149/80 H 03/06/18 06:30 146/82 H 03/06/18 06:25 82 149/85 H 03/06/18 06:20 84 148/85 H 03/06/18 06:15 82 152/87 H 03/06/18 01:00 85 161/88 H 03/06/18 00:45 85 150/92 H 03/06/18 00:30 87 159/92 H 03/06/18 00:11 109 H 161/94 H 03/06/18 00:05 90 146/85 H 03/06/18 00:00 83 165/87 H 03/05/18 23:55 86 162/87 H 03/05/18 23:54 37 C 88 20 166/92 H 95 Intake & Output: Intake & Output 03/03/18 03/04/18 03/05/18 03/06/18 23:59 23:59 23:59 23:59 Intake Total 3200.000 3520.583 554.167 Output Total 450 500 Balance 2750.000 3020.583 554.167 - Objective General Appearance: positive: No acute distress, Alert Eyes Bilateral: positive: PERRL, EOMI ENT: positive: Pharynx nml (edentulous) Neck: positive: No JVD. negative: Stiff neck, Carotid bruit Respiratory: positive: Chest non-tender. negative: Wheezes, Rales, Rhonchi Cardiovascular: positive: Regular rate & rhythm. negative: Gallop/S4, Friction rub Abdomen: positive: Non-tender, No organomegaly, Nml bowel sounds, No distention Skin: positive: Warm, Dry Extremities: positive: No pedal edema Neurologic/Psychiatric: positive: Oriented x3, Facial droop, Slurred/abnml speech, Other (Left upper extremity with weakness. Unchanged this entire admission. Did manage to get to see physical therapy yesterday.) - Lab Results Fish Bones: 03/06/18 05:50 03/06/18 05:50 Other Labs: Lab Results x24hrs 03/06/18 03/06/18 03/06/18 Range/Units 05:50 05:50 05:45 WBC 19.1 H (4.8-10.8) x10^3/uL RBC 4.44 L (4.70-6.10) 10^6/uL Hgb 12.9 L (14.0-18.0) g/dL Hct 38.3 L (42.0-52.0) % MCV 86.1 (80.0-94.0) fL MCH 29.0 (27.0-31.0) pg MCHC 33.6 (32.0-36.0) g/dL RDW 13.3 (12.0-15.0) % Plt Count 213 (130-450) 10^3/uL MPV 7.6 (7.4-11.4) fL Neut # (Auto) 16.3 H (1.5-6.6) 10^3/uL Lymph # (Auto) 1.3 L (1.5-3.5) 10^3/uL [place] # (Auto) 1.3 H (0.0-1.0) 10^3/uL Eos # (Auto) 0.0 (0.0-0.7) 10^3/uL Baso # (Auto) 0.1 (0.0-0.1) 10^3/uL Absolute Nucleated RBC 0.01 x10^3/uL Nucleated RBC % 0.0 /100WBC Sodium 140 (135-145) mmol/L Potassium 3.2 L (3.5-5.0) mmol/L Chloride 107 (101-111) mmol/L Carbon Dioxide 22 (21-32) mmol/L Anion Gap 11.0 (6-13) BUN 16 (6-20) mg/dL Creatinine 1.0 (0.6-1.2) mg/dL Estimated GFR (MDRD) 82 L (>89) Glucose 144 H (70-100) mg/dL POC Whole Bld Glucose 131 H (70 - 100) mg/dL Calcium 7.1 L (8.5-10.3) mg/dL Total Bilirubin 1.3 H (0.2-1.0) mg/dL AST 22 (10-42) IU/L ALT 47 (10-60) IU/L Alkaline Phosphatase 71 (42-121) IU/L Total Protein 6.2 L (6.7-8.2) g/dL Albumin 2.8 L (3.2-5.5) g/dL Globulin 3.4 (2.1-4.2) g/dL Albumin/Globulin Ratio 0.8 L (1.0-2.2) Amylase 85 (28-100) U/L Lipase 35 (22-51) U/L 03/05/18 03/05/18 03/05/18 Range/Units 23:45 18:10 11:43 WBC (4.8-10.8) x10^3/uL RBC (4.70-6.10) 10^6/uL Hgb (14.0-18.0) g/dL Hct (42.0-52.0) % MCV (80.0-94.0) fL MCH (27.0-31.0) pg MCHC (32.0-36.0) g/dL RDW (12.0-15.0) % Plt Count (130-450) 10^3/uL MPV (7.4-11.4) fL Neut # (Auto) (1.5-6.6) 10^3/uL Lymph # (Auto) (1.5-3.5) 10^3/uL [place] # (Auto) (0.0-1.0) 10^3/uL Eos # (Auto) (0.0-0.7) 10^3/uL Baso # (Auto) (0.0-0.1) 10^3/uL Absolute Nucleated RBC x10^3/uL Nucleated RBC % /100WBC Sodium (135-145) mmol/L Potassium (3.5-5.0) mmol/L Chloride (101-111) mmol/L Carbon Dioxide (21-32) mmol/L Anion Gap (6-13) BUN (6-20) mg/dL Creatinine (0.6-1.2) mg/dL Estimated GFR (MDRD) (>89) Glucose (70-100) mg/dL POC Whole Bld Glucose 138 H 122 H 149 H (70 - 100) mg/dL Calcium (8.5-10.3) mg/dL Total Bilirubin (0.2-1.0) mg/dL AST (10-42) IU/L ALT (10-60) IU/L Alkaline Phosphatase (42-121) IU/L Total Protein (6.7-8.2) g/dL Albumin (3.2-5.5) g/dL Globulin (2.1-4.2) g/dL Albumin/Globulin Ratio (1.0-2.2) Amylase (28-100) U/L Lipase (22-51) U/L ABX Reporting Has patient been on IV antibiotics over the past 48 hours?: Yes Assessment/Plan - Problem List (1) Gallstone pancreatitis Impression: Patient presents as epigastric pain radiating through his back, with some nausea. Pain is been agonizing in his back. No fever, no chills. On lab work he has elevated white cell count, elevated liver enzymes, elevated lipase. An evaluation for gallstone pancreatitis, it looks like he may have passed a stone and there is nothing in the common bile duct. General surgery is aware of the patient.Using the data we have she has one point on Miguel's criteria on admission. And 3 points cumulative after 24 hours. Severe pancreatitis is unlikely but there is still a 15% predicted mortality. Plan: Inpatient status Single agent Zosyn therapy because of the elevated white cell count, Day #3 WBC is slowly coming down, continue to monitor N.p.o. To advanced to low-fat diet. Only for today. Then returned to be n.p.o. for surgery tomorrow. IV fluids for hydration, Changed to lactated Ringer's Antiemetics for nausea Opioids for pain Add lidoderm patch to back for pain All of this was discussed with the patient and his fiance. Anatomy was drawn on the board. Explained to him twice. He definitely has problems with cognition and understanding. The discussion was held on admission. It was repeated again 03/05 General surgery plans on taking out his gallbladder on March 07. 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 He will placed on sliding scale insulin. No metformin at this time until able to eat or drink normally. 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 I will resume medication with either IV Lopressor IV ROMINA inhibitor if his blood pressure rises to the point of needing treatment. All day long he has been hypertensive at 140s-160s. As such I started IV lisinopril/enalapril 03/05. Still elevated with IV ROMINA inhibitor. Will give p.o. meds today prior to surgery. Qualifiers: Hypertension type: essential hypertension Qualified Code(s): I10 - Essential (primary) hypertension (4) History of hemorrhagic stroke with residual hemiparesis Conclusion/Plan: As well as speech. Cognitive deficit. Plan: Resume aspirin and statin when he is able to take p.o. PT and OT asked to see him if they can help him with his hand therapy while he is here. OT not available, seen by PT. He is very anxious about starting that maintaining that. He was already scheduled in the outpatient setting to start on 03/07 Social work consult. I do not know what services he has obtained. See social work and help him with disability status, and other services that may help him. (5) Full code status Conclusion/Plan: He says that at this time he still wants to keep ongoing even if he he has further stroke, or is a disabled to end up living in a shelter. He understands what a full code means after explained to him CPR, intubation, chest compressions, cardioversion. He has never thought about quality of life, never thought about what it would be like to be severely disabled and living in a shelter. He and his partner will have conversations in the next few weeks as they trying to find quality of life and what makes him happy and what he likes to do. He will then sure that with his primary care provider. (6) Hypokalemia Conclusion/Plan: Supplement IV Again today. I have been giving 40 meq daily but will give 80 today since consistently low.
--- NOTE | 2018-03-06 09:02 | PROVIDER PROGRESS NOTE ---
Subjective - Prog Note Date Prog Note Date: 03/06/18 Prog Note Time: 09:00 - Subjective Pt reports feeling: Improved (Pt reports he still has back pain, but it is improving. Able to tolerate liquids.) Objective - Vital Signs/Intake & Output Vital Signs: Vital Signs x48h Temp Pulse Resp BP Pulse Ox 03/06/18 07:54 36.7 C 92 24 173/89 H 95 03/06/18 07:17 84 146/84 H 03/06/18 07:00 143/83 H 03/06/18 06:45 84 149/80 H 03/06/18 06:30 146/82 H 03/06/18 06:25 82 149/85 H 03/06/18 06:20 84 148/85 H 03/06/18 06:15 82 152/87 H Intake & Output: Intake & Output 03/03/18 03/04/18 03/05/18 03/06/18 23:59 23:59 23:59 23:59 Intake Total 3200.000 3520.583 554.167 Output Total 450 500 Balance 2750.000 3020.583 554.167 - Objective General Appearance: positive: No acute distress Eyes Bilateral: positive: Normal inspection ENT: positive: ENT inspection nml Neck: positive: Nml inspection Respiratory: positive: Chest non-tender Cardiovascular: positive: Regular rate & rhythm Abdomen: positive: Non-tender Back: positive: Nml inspection Skin: positive: Color nml Extremities: positive: Non-tender Neurologic/Psychiatric: positive: Oriented x3 - Lab Results Fish Bones: 03/06/18 05:50 03/06/18 05:50 Other Labs: Lab Results x24hrs 03/06/18 03/06/18 03/06/18 Range/Units 05:50 05:50 05:45 WBC 19.1 H (4.8-10.8) x10^3/uL RBC 4.44 L (4.70-6.10) 10^6/uL Hgb 12.9 L (14.0-18.0) g/dL Hct 38.3 L (42.0-52.0) % MCV 86.1 (80.0-94.0) fL MCH 29.0 (27.0-31.0) pg MCHC 33.6 (32.0-36.0) g/dL RDW 13.3 (12.0-15.0) % Plt Count 213 (130-450) 10^3/uL MPV 7.6 (7.4-11.4) fL Neut # (Auto) 16.3 H (1.5-6.6) 10^3/uL Lymph # (Auto) 1.3 L (1.5-3.5) 10^3/uL Collin # (Auto) 1.3 H (0.0-1.0) 10^3/uL Eos # (Auto) 0.0 (0.0-0.7) 10^3/uL Baso # (Auto) 0.1 (0.0-0.1) 10^3/uL Absolute Nucleated RBC 0.01 x10^3/uL Nucleated RBC % 0.0 /100WBC Sodium 140 (135-145) mmol/L Potassium 3.2 L (3.5-5.0) mmol/L Chloride 107 (101-111) mmol/L Carbon Dioxide 22 (21-32) mmol/L Anion Gap 11.0 (6-13) BUN 16 (6-20) mg/dL Creatinine 1.0 (0.6-1.2) mg/dL Estimated GFR (MDRD) 82 L (>89) Glucose 144 H (70-100) mg/dL POC Whole Bld Glucose 131 H (70 - 100) mg/dL Calcium 7.1 L (8.5-10.3) mg/dL Total Bilirubin 1.3 H (0.2-1.0) mg/dL AST 22 (10-42) IU/L ALT 47 (10-60) IU/L Alkaline Phosphatase 71 (42-121) IU/L Total Protein 6.2 L (6.7-8.2) g/dL Albumin 2.8 L (3.2-5.5) g/dL Globulin 3.4 (2.1-4.2) g/dL Albumin/Globulin Ratio 0.8 L (1.0-2.2) Amylase 85 (28-100) U/L Lipase 35 (22-51) U/L 03/05/18 03/05/18 03/05/18 Range/Units 23:45 18:10 11:43 WBC (4.8-10.8) x10^3/uL RBC (4.70-6.10) 10^6/uL Hgb (14.0-18.0) g/dL Hct (42.0-52.0) % MCV (80.0-94.0) fL MCH (27.0-31.0) pg MCHC (32.0-36.0) g/dL RDW (12.0-15.0) % Plt Count (130-450) 10^3/uL MPV (7.4-11.4) fL Neut # (Auto) (1.5-6.6) 10^3/uL Lymph # (Auto) (1.5-3.5) 10^3/uL Collin # (Auto) (0.0-1.0) 10^3/uL Eos # (Auto) (0.0-0.7) 10^3/uL Baso # (Auto) (0.0-0.1) 10^3/uL Absolute Nucleated RBC x10^3/uL Nucleated RBC % /100WBC Sodium (135-145) mmol/L Potassium (3.5-5.0) mmol/L Chloride (101-111) mmol/L Carbon Dioxide (21-32) mmol/L Anion Gap (6-13) BUN (6-20) mg/dL Creatinine (0.6-1.2) mg/dL Estimated GFR (MDRD) (>89) Glucose (70-100) mg/dL POC Whole Bld Glucose 138 H 122 H 149 H (70 - 100) mg/dL Calcium (8.5-10.3) mg/dL Total Bilirubin (0.2-1.0) mg/dL AST (10-42) IU/L ALT (10-60) IU/L Alkaline Phosphatase (42-121) IU/L Total Protein (6.7-8.2) g/dL Albumin (3.2-5.5) g/dL Globulin (2.1-4.2) g/dL Albumin/Globulin Ratio (1.0-2.2) Amylase (28-100) U/L Lipase (22-51) U/L Assessment/Plan - Problem List (1) Gallstone pancreatitis Impression: Pt continues to improve and he should tolerate a cholecystectomy tomorrow.
[2018-03-06] MEDS: LORATADINE 10 MG TABLET PO SCH (09:24)
[2018-03-06] MEDS: POTASSIUM CHLORIDE 20 MEQ TABLET PO SCH (09:24)
[2018-03-06] MEDS: POLYETHYLENE GLYCOL 3350 17 GM PACKET PO SCH (09:24)
[2018-03-06] MEDS: POTASSIUM CHLOR 10 MEQ/100 ML 10 MEQ/100 ML BAG IV SCH ×9 (09:24→20:48)
[2018-03-06] MEDS: SODIUM CHLORIDE FLUSH 0.9% 10 ML SYRINGE IVP SCH ×2 (09:25→18:15)
[2018-03-06] MEDS: LIDOCAINE PATCH 5% TOP SCH (09:25)
[2018-03-06] MEDS: amLODIPine 5 MG TABLET PO SCH (10:42)
[2018-03-07] MEDS: ENALAPRILAT 1.25 MG/ML VIAL IVP SCH ×4 (00:25→17:52)
[2018-03-07] MEDS: KETOROLAC 15 MG/ML VIAL IVP PRN ×2 (01:07→06:51)
[2018-03-07] MEDS: SODIUM CHLORIDE FLUSH 0.9% 10 ML SYRINGE IVP SCH ×3 (03:30→17:47)
[2018-03-07] MEDS: LACTATED RINGERS 1,000 ML IV SCH ×3 (03:30→20:08)
[2018-03-07] MEDS: PIPERACILLIN/TAZOBACTAM 3.375 GM in SODIUM CHLORIDE 0.9% MINIBAG 100 ML IV SCH ×4 (05:10→22:49)
[2018-03-07] MEDS: INSULIN REGULAR HUMAN 100 UNIT/1 ML 10 ML MDV SUBQ SCH ×4 (05:56→18:27)
[2018-03-07 06:24] LABS: BASOPHILS % (AUTO) 0.3 %; EOSINOPHILS # (AUTO) 0.2 10^3/uL (0.0-0.7); EOSINOPHILS % (AUTO) 1.3 %; HGB - HEMOGLOBIN 12.5 g/dL (14.0-18.0); LYMPHOCYTES # (AUTO) 1.5 10^3/uL (1.5-3.5); LYMPHOCYTES % (AUTO) 8.4 %; MEAN CORPUSCULAR HEMOGLOBIN 28.8 pg (27.0-31.0); MEAN CORPUSCULAR HGB CONC 33.2 g/dL (32.0-36.0); MEAN CORPUSCULAR VOLUME 86.8 fL (80.0-94.0); MEAN PLATELET VOLUME 8.2 fL (7.4-11.4); MONOCYTES # (AUTO) 1.4 10^3/uL (0.0-1.0); NEUTROPHILS # (AUTO) 14.6 10^3/uL (1.5-6.6); PLT - PLATELET COUNT 237 10^3/uL (130-450); RED BLOOD COUNT 4.36 10^6/uL (4.70-6.10); WHITE BLOOD COUNT 17.8 x10^3/uL (4.8-10.8)
[2018-03-07 06:34] LABS: ALBUMIN 2.6 g/dL (3.2-5.5); ALBUMIN/GLOBULIN RATIO 0.7 (1.0-2.2); BILIRUBIN,TOTAL 1.3 mg/dL (0.2-1.0); CALCIUM 7.5 mg/dL (8.5-10.3); CREATININE 0.8 mg/dL (0.6-1.2); TOTAL PROTEIN 6.2 g/dL (6.7-8.2)
--- NOTE | 2018-03-07 08:38 | PROVIDER PROGRESS NOTE ---
Subjective - Prog Note Date Prog Note Date: 03/07/18 Prog Note Time: 20:12 - Subjective Subjective: went ot OR no complications so far orders per surgey Current Medications - Current Medications Current Medications: Active Medications Amlodipine Besylate (Norvasc) 5 mg PO DAILY [facility] Last Admin: 03/06/18 10:42 Dose: 5 mg Enalaprilat (Vasotec Inj) 1.25 mg IVP Q6HR [facility] Last Admin: 03/07/18 05:56 Dose: 1.25 mg Piperacillin Sod/Tazobactam (Sod 3.375 gm/ Sodium Chloride) 100 mls @ 200 mls/hr IV Q6H [facility] Last Infusion: 03/07/18 05:55 Dose: Infused Lactated Ringer's (Lr) 1,000 mls @ 125 mls/hr IV .Q8H [facility] Last Infusion: 03/07/18 06:00 Dose: 125 mls/hr Potassium Chloride 40 meq/ (Sodium Chloride) 500 mls @ 125 mls/hr IV ONCE [facility] Stop: 03/07/18 14:00 Insulin Human Regular (Novolin R) 2 - 10 unit SUBQ Q6HR [facility]; Protocol Last Admin: 03/07/18 05:56 Dose: Not Given Ketorolac Tromethamine (Toradol Inj (15mg)) 15 mg IVP Q6HR PRN PRN Reason: PAIN Stop: 03/10/18 14:56 Last Admin: 03/07/18 06:51 Dose: 15 mg Lidocaine (Lidoderm Patch) 1 patch TOP DAILY [facility] Last Admin: 03/06/18 09:25 Dose: 1 patch Loratadine (Claritin) 10 mg PO DAILY [facility] Last Admin: 03/06/18 09:24 Dose: 10 mg Methocarbamol (Robaxin) 500 mg PO QPM PRN PRN Reason: SHOULDER PAIN Last Admin: 03/06/18 19:10 Dose: 500 mg Morphine Sulfate (Morphine (Carpuject)) 2 mg IVP Q2HR PRN PRN Reason: Pain 8 to 10 Last Admin: 03/06/18 21:56 Dose: 2 mg Ondansetron HCl (Zofran Inj) 4 mg IVP Q6HR PRN PRN Reason: Nausea / Vomiting Ondansetron HCl (Zofran Odt) 4 mg TL Q6HR PRN PRN Reason: Nausea / Vomiting Polyethylene Glycol (Miralax) 17 gm PO DAILY [facility] Last Admin: 03/06/18 09:24 Dose: 17 gm Potassium Chloride (K-[facility]) [facility] Last Admin: 03/06/18 09:24 Dose: 20 meq Prochlorperazine Edisylate (Compazine Inj) 10 mg IVP Q6HR PRN PRN Reason: Nausea / Vomiting Sodium Chloride (Normal Saline Flush 0.9%) 10 ml IVP PRN PRN PRN Reason: NEEDED PER PROVIDER ORDERS Last Admin: 03/06/18 21:56 Dose: 10 ml Sodium Chloride (Normal Saline Flush 0.9%) 10 ml IVP 0100,0900,1700 [facility] Last Admin: 03/07/18 03:30 Dose: Not Given Atorvastatin Calcium [Lipitor] 80 mg PO QPM 03/04/18 Sitagliptin Phosphate [Januvia] 100 mg PO DAILY 03/04/18 metFORMIN [Glucophage] 1,000 mg PO BID 03/04/18 Aspirin Chewable [[facility] Parker Aspirin] 81 mg PO DAILY 03/05/18 Loratadine [Claritin] 10 mg PO DAILY 03/05/18 Methocarbamol 500 mg PO QPM PRN 03/05/18 Objective - Vital Signs/Intake & Output Reviewed Vital Signs: Yes Vital Signs: Vital Signs x48h Temp Pulse Resp BP BP Pulse Ox 03/07/18 07:42 37.1 C 71 18 143/86 H 96 03/07/18 06:48 68 162/87 H 03/07/18 06:30 90 166/96 H 03/07/18 06:15 74 170/86 H 03/07/18 06:05 80 161/87 H 03/07/18 06:00 74 161/85 H 03/07/18 05:58 74 157/83 H 03/07/18 05:49 80 167/93 H 03/07/18 01:18 75 165/88 H 03/07/18 01:02 88 176/87 H 03/07/18 00:48 83 168/91 H 03/07/18 00:36 80 169/88 H Intake & Output: Intake & Output 03/04/18 03/05/18 03/06/18 03/07/18 23:59 23:59 23:59 23:59 Intake Total 3200.000 3520.583 4527.084 814.583 Output Total 450 500 Balance 2750.000 3020.583 4527.084 814.583 - Objective General Appearance: positive: No acute distress, Alert Eyes Bilateral: positive: PERRL, EOMI Neck: positive: No JVD Respiratory: positive: Chest non-tender. negative: Wheezes, Rales, Rhonchi Cardiovascular: positive: Regular rate & rhythm. negative: Systolic murmur, Gallop/S4, Friction rub Abdomen: positive: Tenderness (at incision), Other (hypoactive bowel sounds). negative: Guarding, Rebound Skin: positive: Warm, Dry Extremities: positive: No pedal edema Neurologic/Psychiatric: positive: Oriented x3, Facial droop. negative: Motor nml - Lab Results Fish Bones: 03/07/18 05:46 03/07/18 05:46 Other Labs: Lab Results x24hrs 03/07/18 03/07/18 03/07/18 Range/Units 05:47 05:46 05:46 WBC 17.8 H (4.8-10.8) x10^3/uL RBC 4.36 L (4.70-6.10) 10^6/uL Hgb 12.5 L (14.0-18.0) g/dL Hct 37.8 L (42.0-52.0) % MCV 86.8 (80.0-94.0) fL MCH 28.8 (27.0-31.0) pg MCHC 33.2 (32.0-36.0) g/dL RDW 13.0 (12.0-15.0) % Plt Count 237 (130-450) 10^3/uL MPV 8.2 (7.4-11.4) fL Neut # (Auto) 14.6 H (1.5-6.6) 10^3/uL Lymph # (Auto) 1.5 (1.5-3.5) 10^3/uL Hall # (Auto) 1.4 H (0.0-1.0) 10^3/uL Eos # (Auto) 0.2 (0.0-0.7) 10^3/uL Baso # (Auto) 0.0 (0.0-0.1) 10^3/uL Absolute Nucleated RBC 0.01 x10^3/uL Nucleated RBC % 0.1 /100WBC Sodium 140 (135-145) mmol/L Potassium 3.2 L (3.5-5.0) mmol/L Chloride 108 (101-111) mmol/L Carbon Dioxide 24 (21-32) mmol/L Anion Gap 8.0 (6-13) BUN 14 (6-20) mg/dL Creatinine 0.8 (0.6-1.2) mg/dL Estimated GFR (MDRD) 106 (>89) Glucose 145 H (70-100) mg/dL POC Whole Bld Glucose 134 H (70 - 100) mg/dL Calcium 7.5 L (8.5-10.3) mg/dL Total Bilirubin 1.3 H (0.2-1.0) mg/dL AST 21 (10-42) IU/L ALT 38 (10-60) IU/L Alkaline Phosphatase 71 (42-121) IU/L Total Protein 6.2 L (6.7-8.2) g/dL Albumin 2.6 L (3.2-5.5) g/dL Globulin 3.6 (2.1-4.2) g/dL Albumin/Globulin Ratio 0.7 L (1.0-2.2) Amylase 34 (28-100) U/L Lipase 22 (22-51) U/L 03/07/18 03/06/18 03/06/18 Range/Units 00:19 18:02 11:44 WBC (4.8-10.8) x10^3/uL RBC (4.70-6.10) 10^6/uL Hgb (14.0-18.0) g/dL Hct (42.0-52.0) % MCV (80.0-94.0) fL MCH (27.0-31.0) pg MCHC (32.0-36.0) g/dL RDW (12.0-15.0) % Plt Count (130-450) 10^3/uL MPV (7.4-11.4) fL Neut # (Auto) (1.5-6.6) 10^3/uL Lymph # (Auto) (1.5-3.5) 10^3/uL Hall # (Auto) (0.0-1.0) 10^3/uL Eos # (Auto) (0.0-0.7) 10^3/uL Baso # (Auto) (0.0-0.1) 10^3/uL Absolute Nucleated RBC x10^3/uL Nucleated RBC % /100WBC Sodium (135-145) mmol/L Potassium (3.5-5.0) mmol/L Chloride (101-111) mmol/L Carbon Dioxide (21-32) mmol/L Anion Gap (6-13) BUN (6-20) mg/dL Creatinine (0.6-1.2) mg/dL Estimated GFR (MDRD) (>89) Glucose (70-100) mg/dL POC Whole Bld Glucose 127 H 123 H 174 H (70 - 100) mg/dL Calcium (8.5-10.3) mg/dL Total Bilirubin (0.2-1.0) mg/dL AST (10-42) IU/L ALT (10-60) IU/L Alkaline Phosphatase (42-121) IU/L Total Protein (6.7-8.2) g/dL Albumin (3.2-5.5) g/dL Globulin (2.1-4.2) g/dL Albumin/Globulin Ratio (1.0-2.2) Amylase (28-100) U/L Lipase (22-51) U/L ABX Reporting Has patient been on IV antibiotics over the past 48 hours?: Yes Assessment/Plan - Problem List (1) Gallstone pancreatitis Impression: Patient presents as epigastric pain radiating through his back, with some nausea. Pain is been agonizing in his back. No fever, no chills. On lab work he has elevated white cell count, elevated liver enzymes, elevated lipase. An evaluation for gallstone pancreatitis, it looks like he may have passed a stone and there is nothing in the common bile duct. General surgery is aware of the patient.Using the data we have she has one point on Miguel's criteria on admission. And 3 points cumulative after 24 hours. Severe pancreatitis is unlikely but there is still a 15% predicted mortality. Plan: Inpatient status Single agent Zosyn therapy because of the elevated white cell count, Day #4 WBC is slowly coming down, continue to monitor. 21K on admit>17K today. Advanced to low-fat diet on 03/06 and did ok but now NPO for surgery today IV fluids for hydration, Changed to lactated Ringer's Antiemetics for nausea Opioids for pain Added lidoderm patch to back for pain and +/- relief. All of this was discussed with the patient and his fiance on admission. Anatomy was drawn on the board. Explained to him twice. He definitely has problems with cognition and understanding. 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 He will placed on sliding scale insulin. No metformin at this time until able to eat or drink normally. 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 I had resumed medication with either IV Lopressor IV ROMINA inhibitor if his blood pressure rises to the point of needing treatment. He had been hypertensive at 140s-160s. As such I started IV lisinopril/enalapril 03/05. Still elevated with IV ROMINA inhibitor. Given p.o. meds 03/06 prior to surgery. Qualifiers: Hypertension type: essential hypertension Qualified Code(s): I10 - Essential (primary) hypertension (4) History of hemorrhagic stroke with residual hemiparesis Conclusion/Plan: As well as speech. Cognitive deficit. Plan: Resume aspirin and statin when he is able to take p.o. PT and OT asked to see him if they can help him with his hand therapy while he is here. OT not available, seen by PT. He is very anxious about starting that maintaining that. He was already scheduled in the outpatient setting to start on 03/07 Social work consult. I do not know what services he has obtained. See social work and help him with disability status, and other services that may help him. (5) Full code status Conclusion/Plan: He says that at this time he still wants to keep ongoing even if he he has further stroke, or is a disabled to end up living in a residential. He understands what a full code means after explained to him CPR, intubation, chest compressions, cardioversion. He has never thought about quality of life, never thought about what it would be like to be severely disabled and living in a residential. He and his partner will have conversations in the next few weeks as they trying to find quality of life and what makes him happy and what he li kes to do. He will then sure that with his primary care provider. (6) Hypokalemia Conclusion/Plan: Supplement IV Again today. I had been giving 40 meq daily but will gave 80 03/06 since consistently low. This am, low as well. Another rider with surgery.
[2018-03-07] MEDS ORDERED: POTASSIUM CHLORIDE INJ 40 MEQ in SODIUM CHLORIDE 0.9% 480 ML IV SCH (09:00)
[2018-03-07] MEDS: POTASSIUM CHLORIDE 20 MEQ TABLET PO SCH (09:40)
[2018-03-07] MEDS: amLODIPine 5 MG TABLET PO SCH (09:40)
[2018-03-07] MEDS: POLYETHYLENE GLYCOL 3350 17 GM PACKET PO SCH (09:40)
[2018-03-07] MEDS: LORATADINE 10 MG TABLET PO SCH (09:40)
[2018-03-07] MEDS: LIDOCAINE PATCH 5% TOP SCH (09:40)
[2018-03-07] MEDS: MORPHINE 2 MG/ML CARPUJECT IVP PRN ×2 (09:44→11:56)
[2018-03-07] MEDS ORDERED: BUPIVACAINE 0.5% PF 30 ML VIAL ONE (13:07)
--- NOTE | 2018-03-07 13:59 | ANESTHESIA ---
Pre-Anesthesia VS, & Labs - Diagnosis Diagnosis Gallstone pancreatitis - Procedure Laporoscopic Cholecystectomy Vital Signs: Temp Pulse Resp BP Pulse Ox 36.7 C 78 18 151/92 H 96 03/07/18 11:26 03/07/18 11:26 03/07/18 11:26 03/07/18 11:26 03/07/18 11:26 Height 6 ft 4 in Weight (kg) 115 kg Body Mass Index 30.8 - NPO >8 hours - Lab Results Current Lab Results: Laboratory Tests 03/07/18 11:21: POC Whole Bld Glucose 136 H 03/07/18 05:47: POC Whole Bld Glucose 134 H 03/07/18 05:46: Sodium 140, Potassium 3.2 L, Chloride 108, Carbon Dioxide 24, Anion Gap 8.0, BUN 14, Creatinine 0.8, Estimated GFR (MDRD) 106, Glucose 145 H, Calcium 7.5 L, Total Bilirubin 1.3 H, AST 21, ALT 38, Alkaline Phosphatase 71, Total Protein 6.2 L, Albumin 2.6 L, Globulin 3.6, Albumin/Globulin Ratio 0.7 L, Amylase 34, Lipase 22 03/07/18 05:46: WBC 17.8 H, RBC 4.36 L, Hgb 12.5 L, Hct 37.8 L, MCV 86.8, MCH 28.8, MCHC 33.2, RDW 13.0, Plt Count 237, MPV 8.2, Neut # (Auto) 14.6 H, Lymph # (Auto) 1.5, Tripp # (Auto) 1.4 H, Eos # (Auto) 0.2, Baso # (Auto) 0.0, Absolute Nucleated RBC 0.01, Nucleated RBC % 0.1 03/07/18 00:19: POC Whole Bld Glucose 127 H 03/06/18 18:02: POC Whole Bld Glucose 123 H 03/06/18 11:44: POC Whole Bld Glucose 174 H 03/06/18 05:50: Sodium 140, Potassium 3.2 L, Chloride 107, Carbon Dioxide 22, Anion Gap 11.0, BUN 16, Creatinine 1.0, Estimated GFR (MDRD) 82 L, Glucose 144 H , Calcium 7.1 L, Total Bilirubin 1.3 H, AST 22, ALT 47, Alkaline Phosphatase 71, Total Protein 6.2 L, Albumin 2.8 L, Globulin 3.4, Albumin/Globulin Ratio 0.8 L, Amylase 85, Lipase 35 03/06/18 05:50: WBC 19.1 H, RBC 4.44 L, Hgb 12.9 L, Hct 38.3 L, MCV 86.1, MCH 29.0, MCHC 33.6, RDW 13.3, Plt Count 213, MPV 7.6, Neut # (Auto) 16.3 H, Lymph # (Auto) 1.3 L, Tripp # (Auto) 1.3 H, Eos # (Auto) 0.0, Baso # (Auto) 0.1, Absolute Nucleated RBC 0.01, Nucleated RBC % 0.0 03/06/18 05:45: POC Whole Bld Glucose 131 H 03/05/18 23:45: POC Whole Bld Glucose 138 H 03/05/18 18:10: POC Whole Bld Glucose 122 H 03/05/18 11:43: POC Whole Bld Glucose 149 H 03/05/18 05:49: POC Whole Bld Glucose 146 H 03/05/18 05:40: Sodium 140, Potassium 3.2 L, Chloride 109, Carbon Dioxide 23, Anion Gap 8.0, BUN 16, Creatinine 1.1, Estimated GFR (MDRD) 73 L, Glucose 155 H, Calcium 7.2 L, Total Bilirubin 1.1 H, AST 29, ALT 67 H, Alkaline Phosphatase 72, Total Protein 6.4 L, Albumin 3.2, Globulin 3.2, Albumin/Globulin Ratio 1.0, Amylase 318 H, Lipase 160 H 03/05/18 05:40: WBC 21.9 H, RBC 4.92, Hgb 14.1, Hct 42.9, MCV 87.1, MCH 28.6, MCHC 32.9, RDW 13.0, Plt Count 246, MPV 7.7, Neut # (Auto) 18.8 H, Lymph # (Auto) 1.2 L, Tripp # (Auto) 1.8 H, Eos # (Auto) 0.0, Baso # (Auto) 0.1, Absolute Nucleated RBC 0.00, Nucleated RBC % 0.0, Manual Slide Review Indicated, Platelet Estimate NORMAL (130-450,000), RBC Morph Micro Appear NORMAL APPEARANCE 03/04/18 23:35: POC Whole Bld Glucose 143 H 03/04/18 20:26: POC Whole Bld Glucose 168 H 03/04/18 17:05: POC Whole Bld Glucose 185 H 03/04/18 09:55: Sodium 137, Potassium 3.1 L, Chloride 98 L, Carbon Dioxide 27, Anion Gap 12.0, BUN 23 H, Creatinine 1.0, Estimated GFR (MDRD) 82 L, Glucose 255 H, Calcium 8.5, Total Bilirubin 0.9, AST 55 H, ALT 117 H, Alkaline Phosphatase 104, Total Protein 8.1, Albumin 4.2, Globulin 3.9, Albumin/Globulin Ratio 1.1, Lipase 780 H 03/04/18 09:55: WBC 21.2 H, RBC 5.68, Hgb 16.3, Hct 48.0, MCV 84.5, MCH 28.7, MCHC 33.9, RDW 13.1, Plt Count 321, MPV 7.8, Neut # (Auto) 17.7 H, Lymph # (Auto) 1.8, Tripp # (Auto) 1.6 H, Eos # (Auto) 0.0, Baso # (Auto) 0.1, Absolute Nucleated RBC 0.01, Nucleated RBC % 0.0 Lab results reviewed: Yes Fish Bones: 03/07/18 05:46 03/07/18 05:46 Home Medications and Allergies Home Medications: Ambulatory Orders Atorvastatin Calcium [Lipitor] 80 mg PO QPM 03/04/18 Sitagliptin Phosphate [Januvia] 100 mg PO DAILY 03/04/18 metFORMIN [Glucophage] 1,000 mg PO BID 03/04/18 Aspirin Chewable [[facility] Aspirin] 81 mg PO DAILY 03/05/18 Loratadine [Claritin] 10 mg PO DAILY 03/05/18 Methocarbamol 500 mg PO QPM PRN 03/05/18 Active Medications Amlodipine Besylate (Norvasc) 5 mg PO DAILY [facility] Last Admin: 03/07/18 09:40 Dose: 5 mg Enalaprilat (Vasotec Inj) 1.25 mg IVP Q6HR [facility] Last Admin: 03/07/18 12:06 Dose: 1.25 mg Piperacillin Sod/Tazobactam (Sod 3.375 gm/ Sodium Chloride) 100 mls @ 200 mls/hr IV Q6H [facility] Last Admin: 03/07/18 11:58 Dose: 100 mls/hr Lactated Ringer's (Lr) 1,000 mls @ 125 mls/hr IV .Q8H [facility] Last Admin: 03/07/18 11:56 Dose: 125 mls/hr Potassium Chloride 40 meq/ (Sodium Chloride) 500 mls @ 125 mls/hr IV ONCE [facility] Stop: 03/07/18 14:00 Last Admin: 03/07/18 10:10 Dose: 125 mls/hr Insulin Human Regular (Novolin R) 2 - 10 unit SUBQ Q6HR [facility]; Protocol Last Admin: 03/07/18 12:07 Dose: Not Given Ketorolac Tromethamine (Toradol Inj (15mg)) 15 mg IVP Q6HR PRN PRN Reason: PAIN Stop: 03/10/18 14:56 Last Admin: 03/07/18 06:51 Dose: 15 mg Lidocaine (Lidoderm Patch) 1 patch TOP DAILY [facility] Last Admin: 03/07/18 09:40 Dose: 1 patch Loratadine (Claritin) 10 mg PO DAILY [facility] Last Admin: 03/07/18 09:40 Dose: 10 mg Methocarbamol (Robaxin) 500 mg PO QPM PRN PRN Reason: SHOULDER PAIN Last Admin: 03/06/18 19:10 Dose: 500 mg Morphine Sulfate (Morphine (Carpuject)) 2 mg IVP Q2HR PRN PRN Reason: Pain 8 to 10 Last Admin: 03/07/18 11:56 Dose: 2 mg Ondansetron HCl (Zofran Inj) 4 mg IVP Q6HR PRN PRN Reason: Nausea / Vomiting Ondansetron HCl (Zofran Odt) 4 mg TL Q6HR PRN PRN Reason: Nausea / Vomiting Polyethylene Glycol (Miralax) 17 gm PO DAILY [facility] Last Admin: 03/07/18 09:40 Dose: Not Given Potassium Chloride (K-Dur) 20 meq PO DAILYWM [facility] Last Admin: 03/07/18 09:40 Dose: 20 meq Prochlorperazine Edisylate (Compazine Inj) 10 mg IVP Q6HR PRN PRN Reason: Nausea / Vomiting Sodium Chloride (Normal Saline Flush 0.9%) 10 ml IVP PRN PRN PRN Reason: NEEDED PER PROVIDER ORDERS Last Admin: 03/06/18 21:56 Dose: 10 ml Sodium Chloride (Normal Saline Flush 0.9%) 10 ml IVP 0100,0900,1700 JESSA Last Admin: 03/07/18 09:41 Dose: Not Given Atorvastatin Calcium [Lipitor] 80 mg PO QPM 03/04/18 Sitagliptin Phosphate [Januvia] 100 mg PO DAILY 03/04/18 metFORMIN [Glucophage] 1,000 mg PO BID 03/04/18 Aspirin Chewable [[facility] Aspirin] 81 mg PO DAILY 03/05/18 Loratadine [Claritin] 10 mg PO DAILY 03/05/18 Methocarbamol 500 mg PO QPM PRN 03/05/18 Allergies/Adverse Reactions: Allergies Allergy/AdvReac Type Severity Reaction Status Date / Time No Known Drug Allergies Allergy Verified 03/04/18 09:43 Anes History & Medical History - Anesthetic History Anesthesia Complications: reports: No previous complications Family history of Anesthesia Complications: Denies Family history of Malignant Hyperthermia: Denies - Medical History Cardiovascular: reports: Hypertension, High cholesterol Gastrointestinal: reports: GERD Urinary: reports: None Neuro: reports: CVA Musculoskeletal: reports: Osteoarthritis Endocrine/Autoimmune: reports: Type 2 diabetes (metformin only) Skin: reports: None Smoking Status: Never smoker Psychosocial: reports: No issues indicated - Surgical History Orthopedic: Other (glass removal from bottom of foot) Exam General: Alert, Oriented x3, Cooperative Dental: Other (no teeth) Neck Mobility: Normal Mallampati classification: II Thyromental Distance: 4-6 cm Respiratory: Lungs clear, Normal breath sounds Cardiovascular: Regular rate Neurological: Normal speech Mental/Cognitive Status: Alert/Oriented X3, Normal for patient Plan Anesthesia Type: General Consent for Procedure(s) Verified and Reviewed: No Code Status: Attempt Resuscitation ASA classification: 2-Mild systemic disease Is this case an emergency?: No
[2018-03-07] MEDS ORDERED: ceFAZolin 2 GM/50 ML 2 GM/50 ML BAG IV ONE (14:52)
[2018-03-07] MEDS ORDERED: BUPIVACAINE 0.5% PF 30 ML VIAL SUBQ ONE ×2 (15:39)
[2018-03-07] MEDS ORDERED: LACTATED RINGERS 1,000 ML IV ONE (15:41)
[2018-03-07] MEDS ORDERED: ONDANSETRON 4 MG/2 ML VIAL IVP ONE (16:24)
[2018-03-07] MEDS ORDERED: fentaNYL 250 MCG/5 ML VIAL IVP ONE (16:24)
[2018-03-07] MEDS ORDERED: ROCURONIUM 50 MG/5 ML VIAL IVP ONE (16:24)
[2018-03-07] MEDS ORDERED: PROPOFOL 200 MG/20 ML VIAL IVP ONE (16:24)
[2018-03-07] MEDS ORDERED: ACETAMINOPHEN 1,000 MG/100 ML 100 ML IV ONE (16:24)
[2018-03-07] MEDS ORDERED: fentaNYL 100 MCG/2 ML VIAL IVP ONE (16:24)
[2018-03-07] MEDS ORDERED: LIDOCAINE-MPF 2% 5 ML VIAL IM ONE (16:24)
[2018-03-07] MEDS ORDERED: KETOROLAC 30 MG/ML VIAL IVP ONE (16:24)
--- NOTE | 2018-03-07 16:58 | IMMEDIATE POSTOPERATIVE NOTE ---
Immediate Postoperative Note - Procedure Note Procedure Date: 03/07/18 Pre-Op Diagnosis: gallstone pancreatitis Procedure: lap anjana Post-Op Diagnosis: same Primary Surgeon: erin Anesthesia Type: General ET tube Complications: No complications Estimated Blood Loss (in cc): 50 Specimens and Cultures: GB Plan of Care: discharge when clear by primary
[2018-03-07] MEDS ORDERED: LACTATED RINGERS 1,000 ML IV SCH (20:38)
[2018-03-08] MEDS: MORPHINE 2 MG/ML CARPUJECT IVP PRN ×4 (00:17→22:53)
[2018-03-08] MEDS: INSULIN REGULAR HUMAN 100 UNIT/1 ML 10 ML MDV SUBQ SCH ×2 (00:23→06:19)
[2018-03-08] MEDS: SODIUM CHLORIDE FLUSH 0.9% 10 ML SYRINGE IVP SCH ×3 (00:50→16:07)
[2018-03-08] MEDS: ENALAPRILAT 1.25 MG/ML VIAL IVP SCH ×4 (00:50→18:28)
[2018-03-08] MEDS: KETOROLAC 15 MG/ML VIAL IVP PRN ×3 (03:53→17:49)
[2018-03-08] MEDS: SODIUM CHLORIDE FLUSH 0.9% 10 ML SYRINGE IVP PRN ×7 (03:53→14:35)
--- NOTE | 2018-03-08 04:05 | OPERATIVE REPORT ---
DATE OF SERVICE: 03/07/2018 Physician: Edson Joyner MD PREOPERATIVE DIAGNOSIS: Gallstone pancreatitis. POSTOPERATIVE DIAGNOSIS: Gallstone pancreatitis. PROCEDURE: Laparoscopic cholecystectomy. SURGEON: Edson Joyner MD ANESTHESIA TYPE: General. INDICATIONS FOR PROCEDURE: Patient is a 42-year-old man who presented to the ER complaining of abdominal pain. He was found to have pancreatitis. He does not drink alcohol and was found to have gallstones in the gallbladder, so he was diagnosed with presumed gallstone pancreatitis. Over the next 2 days, he recovered well from his pancreatitis and plans were made to remove his gallbladder prior to discharge. The patient had an MRCP to clear his duct prior to the operation. PROCEDURE IN DETAIL: The risks and benefits were explained to the patient. He agreed to the procedure. He was taken to the operating room, given general anesthesia and intubated. The abdomen was prepped and draped. Timeout was performed. Everyone in the room agreed to the procedure. We began by making a 12 mm supraumbilical incision. We carried this down into the peritoneal cavity, inserted a Elvis trocar and secured it in place. We insufflated the abdomen to 15 mmHg and then inserted 3 more 5 mm trocars under vision of the camera, 1 below the xiphoid process and 2 below the right costal margin. We then dissected out the cystic duct and artery, and obtained a critical view. These structures were double clipped and ligated, and the gallbladder was then removed off the liver bed using monopolar electricity without perforation. A posterior branch of the cystic artery was identified during dissection, and it was singly clipped and ligated, leaving a total of 5 clips inside the abdomen. The gallbladder was then placed in an Endo Catch bag and sent to Pathology. It was noted to have 1 very large stone and numerous smaller ones. The incision had to be enlarged to accommodate it. The surgical site was then inspected. No residual bleeding was seen. It was lavaged clean and dry, and then the three 5 mm trocars were removed under vision with the camera, with no bleeding seen. The Elvis trocar was removed and the fascia of that port site was closed using a 0 Vicryl stitch. Marcaine was infused in all 4 incisions prior to closure. Finally, the skin over all 4 incisions was closed using 4-0 Monocryl and Dermabond. This terminated the procedure. Patient tolerated it well. He was extubated in the operating room and taken to Recovery in stable condition. The instrument and lap counts were correct. ESTIMATED BLOOD LOSS: 50 mL SPECIMEN: Gallbladder. COMPLICATIONS: None. PLAN: To go home later today or tomorrow. TD: 03/07/2018 17:02 MTDD
[2018-03-08] MEDS: PIPERACILLIN/TAZOBACTAM 3.375 GM in SODIUM CHLORIDE 0.9% MINIBAG 100 ML IV SCH ×4 (06:20→22:53)
[2018-03-08] MEDS: POTASSIUM CHLORIDE 20 MEQ TABLET PO SCH (07:55)
--- NOTE | 2018-03-08 09:52 | PROVIDER PROGRESS NOTE ---
Subjective - Prog Note Date Prog Note Date: 03/08/18 Prog Note Time: 09:50 - Subjective Pt reports feeling: Improved (Pt reports soreness over the incisions, otherwise feeling well POD 1. Ambulating, eating normally.) Objective - Vital Signs/Intake & Output Vital Signs: Vital Signs x48h Temp Pulse Resp BP Pulse Ox 03/08/18 08:00 37.1 C 84 16 157/84 H 95 03/08/18 06:35 157/97 H 03/08/18 06:25 83 20 156/88 H 03/08/18 06:20 82 159/85 H 03/08/18 06:15 83 156/84 H 03/08/18 06:00 82 163/83 H Intake & Output: Intake & Output 03/05/18 03/06/18 03/07/18 03/08/18 23:59 23:59 23:59 23:59 Intake Total 3520.583 4527.084 3702.084 893 Output Total 500 300 750 Balance 3020.583 4527.084 3402.084 143 - Objective General Appearance: positive: No acute distress Eyes Bilateral: positive: Normal inspection ENT: positive: ENT inspection nml Neck: positive: Nml inspection Respiratory: positive: Chest non-tender Abdomen: positive: Tenderness Back: positive: Nml inspection Skin: positive: Color nml Extremities: positive: Non-tender Neurologic/Psychiatric: positive: Oriented x3 - Lab Results Fish Bones: 03/07/18 05:46 03/07/18 05:46 Other Labs: Lab Results x24hrs 03/08/18 03/08/18 03/07/18 Range/Units 07:50 05:44 23:36 POC Whole Bld Glucose 134 H 124 H 150 H (70 - 100) mg/dL 03/07/18 03/07/18 03/07/18 Range/Units 18:17 17:03 15:58 POC Whole Bld Glucose 124 H 126 H 120 H (70 - 100) mg/dL 03/07/18 Range/Units 11:21 POC Whole Bld Glucose 136 H (70 - 100) mg/dL Assessment/Plan - Problem List (1) Gallstone pancreatitis Impression: Pt recuperating normally POD 1 from a lap anjana. Clear for discharge from surgery.
[2018-03-08 09:55] LABS: BASOPHILS % (AUTO) 0.4 %; EOSINOPHILS % (AUTO) 1.2 %; HGB - HEMOGLOBIN 12.2 g/dL (14.0-18.0); LYMPHOCYTES % (AUTO) 6.5 %; MEAN CORPUSCULAR HEMOGLOBIN 28.5 pg (27.0-31.0); MEAN CORPUSCULAR HGB CONC 33.6 g/dL (32.0-36.0); MEAN CORPUSCULAR VOLUME 84.8 fL (80.0-94.0); MEAN PLATELET VOLUME 7.3 fL (7.4-11.4); MONOCYTES % (AUTO) 8.6 %; NEUTROPHILS % (AUTO) 83.3 %; PLT - PLATELET COUNT 279 10^3/uL (130-450); RED BLOOD COUNT 4.28 10^6/uL (4.70-6.10); RED CELL DISTRIBUTION WIDTH 13.2 % (12.0-15.0); WHITE BLOOD COUNT 20.5 x10^3/uL (4.8-10.8)
[2018-03-08] MEDS: LIDOCAINE PATCH 5% TOP SCH (09:58)
[2018-03-08] MEDS: amLODIPine 5 MG TABLET PO SCH ×2 (09:59→21:02)
[2018-03-08] MEDS: LORATADINE 10 MG TABLET PO SCH (09:59)
[2018-03-08] MEDS: INSULIN ASPART 300 UNIT/3 ML PEN SUBQ SCH ×4 (10:01→21:08)
[2018-03-08] MEDS: POLYETHYLENE GLYCOL 3350 17 GM PACKET PO SCH (10:02)
[2018-03-08 10:03] LABS: CALCIUM 7.6 mg/dL (8.5-10.3); CREATININE 0.8 mg/dL (0.6-1.2); MAGNESIUM 1.7 mg/dL (1.7-2.8)
[2018-03-08 10:12] LABS: ABNORMAL LYMPHS % (MANUAL) 0 %
[2018-03-08 10:14] LABS: BAND NEUTROPHILS % (MANUAL) 4 %; LYMPHOCYTES # (MANUAL) 2.7 10^3/uL (1.5-3.5); LYMPHOCYTES % (MANUAL) 6 %; MONOCYTES # (MANUAL) 0.8 10^3/uL (0.0-1.0); MYELOCYTES % (MANUAL) 1 %; NEUTROPHILS # (MANUAL) 16.8 10^3/uL (1.5-6.6); NEUTROPHILS % (MANUAL) 78 %
[2018-03-08 10:15] LABS: DIFFERENTIAL COMMENT MANUAL DIFFERENTIAL; RBC MORPHOLOGY (MULTIPLE) 1+ ANISOCYTOSIS (NORMAL)
--- NOTE | 2018-03-08 13:50 | PROVIDER PROGRESS NOTE ---
Assessment/Plan - Problem List (1) Cholelithiasis Qualifiers: Cholelithiasis location: gallbladder Cholecystitis presence: without cholecystitis Biliary obstruction: with biliary obstruction Qualified Code(s): K80.21 - Calculus of gallbladder without cholecystitis with obstruction Assessment/Plan: POD #1. Pain is under good control on Tramadol and moorphine. WBC went up, since admission. No DCh today, due to increasing WBC. Check CBC daily. Pt on empiric iv antibiotics and having dairrhea. Will add long-acting pain med, to DCh on that. Will advance diet as tolerated and use Florastor, also decrease iv fluids. (2) Gallstone pancreatitis Assessment/Plan: Pain is under good control, as above. Lipase and amylase normalized after Day #2. Will advance diet to soft, low fat, carb controlled. (3) History of hemorrhagic stroke with residual hemiparesis Assessment/Plan: I clarified that the patient normally does drink thin liquids and eat solid foods. He ambulates withouy assistance and is walking here. (4) Type 2 diabetes mellitus with complications Assessment/Plan: Will advance diet to carb-control, continue fingerstick glu checks and ss Insulin coverage. (5) Hypokalemia Assessment/Plan: Likely due to previous npo status. Will replace and follow labs daily. (6) HTN (hypertension) Assessment/Plan: BP elevated since admission and he is needing the prn Enelaprilat for BP cont rol, on top of his Amlodipine. Will decrease iv rate to decrease salt load. Will increase Amlodipine to bid while here. - Current Meds Current Meds: Current Medications Generic Name Dose Route Start Last Admin Trade Name Luis PRN Reason Stop Dose Admin Amlodipine Besylate 5 mg 03/06/18 11:00 03/08/18 09:59 Norvasc PO 5 mg DAILY JESSA Administration Enalaprilat 1.25 mg 03/06/18 07:27 03/08/18 06:16 Vasotec Inj IVP 1.25 mg Q6HR JESSA Administration Piperacillin Sod/Tazobactam 100 mls @ 200 mls/hr 03/04/18 17:00 03/08/18 11:00 Sod 3.375 gm/ Sodium Chloride IV 200 mls/hr Q6H JESSA Administration Lactated Ringer's 1,000 mls @ 75 mls/hr 03/07/18 20:38 03/08/18 11:04 Lr IV 0 mls/hr .[id number] JESSA Infusion Insulin Aspart 2 - 10 unit 03/08/18 08:00 03/08/18 11:47 Novolog SUBQ Not Given 0800,1200,1700,2100 REPLACED BY [facility] Protocol Ketorolac Tromethamine 15 mg 03/05/18 14:57 03/08/18 12:03 Toradol Inj (15mg) IVP 03/10/18 14:56 15 mg Q6HR PRN Administration PAIN Lidocaine 1 patch 03/06/18 10:00 03/08/18 09:58 Lidoderm Patch TOP 1 patch DAILY JESSA Administration Loratadine 10 mg 03/06/18 09:00 03/08/18 09:59 Claritin PO 10 mg DAILY JESSA Administration Methocarbamol 500 mg 03/05/18 14:57 03/06/18 19:10 Robaxin PO 500 mg QPM PRN Administration SHOULDER PAIN Morphine Sulfate 2 mg 03/04/18 16:25 03/08/18 10:02 Morphine (Carpuject) IVP 2 mg Q2HR PRN Administration Pain 8 to 10 Polyethylene Glycol 17 gm 03/05/18 09:00 03/08/18 10:02 Miralax PO Not Given DAILY JESSA Potassium Chloride 20 meq 03/06/18 08:00 03/08/18 07:55 K-Dur PO 20 meq DAILYWM JESSA Administration Sodium Chloride 10 ml 03/04/18 16:25 03/08/18 12:10 Normal Saline Flush 0.9% IVP 10 ml PRN PRN Administration NEEDED PER PROVIDER ORDERS Sodium Chloride 10 ml 03/04/18 17:00 03/08/18 10:02 Normal Saline Flush 0.9% IVP 10 ml 0100,0900,1700 JESSA Administration - Lab Result Fish Bone Diagrams: 03/08/18 09:48 03/08/18 09:48 - Additional Planning My Orders: My Active Orders 03/09/18 05:00 BMP - BASIC METABOLIC PANEL [CHEM] DAILYLAB CBC - COMP BLD CT W/AUTO DIFF [HEME] DAILYLAB 03/10/18 05:00 BMP - BASIC METABOLIC PANEL [CHEM] DAILYLAB CBC - COMP BLD CT W/AUTO DIFF [HEME] DAILYLAB 03/11/18 05:00 BMP - BASIC METABOLIC PANEL [CHEM] DAILYLAB CBC - COMP BLD CT W/AUTO DIFF [HEME] DAILYLAB Subjective - Subjective Patient Reports: Feeling Better, Other (Having diarrhea) Objective Vital Signs: Vital Signs - 24 hr 03/07/18 03/07/18 03/07/18 16:59 17:05 17:10 Temperature 36.4 C L 36.4 C L 36.6 C Heart Rate 92 88 87 Heart Rate [ Brachial] Respiratory 16 16 16 Rate Blood Pressure 130/84 H 137/80 H 133/86 H Blood Pressure [Left Brachial artery] Blood Pressure [Right Brachial artery] O2 Saturation 100 95 94 03/07/18 03/07/18 03/07/18 17:20 17:30 18:13 Temperature 36.6 C 36.7 C 36.6 C Heart Rate 83 76 Heart Rate [ 85 82 Brachial] Respiratory 16 18 18 Rate Blood Pressure 136/86 H 132/89 H Blood Pressure 131/83 H 137/77 H [Left Brachial artery] Blood Pressure [Right Brachial artery] O2 Saturation 97 94 94 03/07/18 03/07/18 03/07/18 20:07 21:55 23:35 Temperature 36.9 C 36.9 C 37.0 C Heart Rate Heart Rate [ 82 80 86 Brachial] Respiratory 17 15 18 Rate Blood Pressure Blood Pressure 163/86 H 147/81 H [Left Brachial artery] Blood Pressure 150/90 H [Right Brachial artery] O2 Saturation 96 96 95 03/08/18 03/08/18 03/08/18 00:45 00:50 00:56 Temperature Heart Rate Heart Rate [ 86 81 81 Brachial] Respiratory Rate Blood Pressure Blood Pressure 150/90 H 168/86 H 158/86 H [Left Brachial artery] Blood Pressure [Right Brachial artery] O2 Saturation 03/08/18 03/08/18 03/08/18 01:10 01:20 06:00 Temperature Heart Rate Heart Rate [ 80 80 82 Brachial] Respiratory Rate Blood Pressure Blood Pressure 167/91 H 166/90 H 163/83 H [Left Brachial artery] Blood Pressure [Right Brachial artery] O2 Saturation 03/08/18 03/08/18 03/08/18 06:15 06:20 06:25 Temperature Heart Rate Heart Rate [ 83 82 83 Brachial] Respiratory 20 Rate Blood Pressure Blood Pressure 156/84 H 159/85 H 156/88 H [Left Brachial artery] Blood Pressure [Right Brachial artery] O2 Saturation 03/08/18 03/08/18 03/08/18 06:35 08:00 12:12 Temperature 37.1 C 37.0 C Heart Rate Heart Rate [ 84 85 Brachial] Respiratory 16 18 Rate Blood Pressure Blood Pressure 157/97 H 157/84 H 157/80 H [Left Brachial artery] Blood Pressure [Right Brachial artery] O2 Saturation 95 96 Oxygen O2 Source Room air I&O (Last 24 Hrs): Intake and Output Totals x24h 03/06/18 03/07/18 03/08/18 23:59 23:59 23:59 Intake Total 4527.084 3702.084 2219.25 Output Total 300 750 Balance 4527.084 3402.084 1469.25 General: Alert, Oriented x3 HEENT: Mucous membr. moist/pink Neck: Supple Neuro: Other (Left arm weakness and contracture) Cardiovascular: Regular rate, No murmurs Respiratory: No respiratory distress Abdomen: Soft, No tenderness, Other (Decreased bowel sounds) Extremities: No edema - Results Results: Laboratory Results WBC 20.5 x10^3/uL (4.8-10.8) H 03/08/18 09:48 RBC 4.28 10^6/uL (4.70-6.10) L 03/08/18 09:48 Hgb 12.2 g/dL (14.0-18.0) L 03/08/18 09:48 Hct 36.2 % (42.0-52.0) L 03/08/18 09:48 MCV 84.8 fL (80.0-94.0) 03/08/18 09:48 MCH 28.5 pg (27.0-31.0) 03/08/18 09:48 MCHC 33.6 g/dL (32.0-36.0) 03/08/18 09:48 RDW 13.2 % (12.0-15.0) 03/08/18 09:48 Plt Count 279 10^3/uL (130-450) 03/08/18 09:48 MPV 7.3 fL (7.4-11.4) L 03/08/18 09:48 Neut # (Auto) Not Reportable 03/08/18 09:48 Lymph # (Auto) Not Reportable 03/08/18 09:48 [place] # (Auto) Not Reportable 03/08/18 09:48 Eos # (Auto) Not Reportable 03/08/18 09:48 Baso # (Auto) Not Reportable 03/08/18 09:48 Absolute Nucleated RBC Not Reportable 03/08/18 09:48 Total Counted 100 03/08/18 09:48 Band Neuts % (Manual) 4 % (0-10) 03/08/18 09:48 Reactive Lymphs % (Man) 7 % 03/08/18 09:48 Abnorm Lymph % (Manual) 0 % 03/08/18 09:48 Myelocytes % 1 % (-0) H 03/08/18 09:48 Nucleated RBC % Not Reportable 03/08/18 09:48 Neutrophils # (Manual) 16.8 10^3/uL (1.5-6.6) H 03/08/18 09:48 Lymphocytes # (Manual) 2.7 10^3/uL (1.5-3.5) 03/08/18 09:48 Monocytes # (Manual) 0.8 10^3/uL (0.0-1.0) 03/08/18 09:48 Eosinophils # (Manual) 0.0 10^3/uL (0-0.7) 03/08/18 09:48 Basophils # (Manual) 0.0 10^3/uL (0-0.1) 03/08/18 09:48 Differential Comment MANUAL DIFFERENTIAL 03/08/18 09:48 Manual Slide Review Indicated 03/08/18 09:48 Platelet Estimate NORMAL (130-450,000) (NORMAL) 03/05/18 05:40 RBC Morph Micro Appear 1+ ANISOCYTOSIS (NORMAL) 03/08/18 09:48 Sodium 138 mmol/L (135-145) 03/08/18 09:48 Potassium 3.2 mmol/L (3.5-5.0) L 03/08/18 09:48 Chloride 104 mmol/L (101-111) 03/08/18 09:48 Carbon Dioxide 23 mmol/L (21-32) 03/08/18 09:48 Anion Gap 11.0 (6-13) 03/08/18 09:48 BUN 13 mg/dL (6-20) 03/08/18 09:48 Creatinine 0.8 mg/dL (0.6-1.2) 03/08/18 09:48 Estimated GFR (MDRD) 106 (>89) 03/08/18 09:48 Glucose 167 mg/dL (70-100) H 03/08/18 09:48 POC Whole Bld Glucose 136 mg/dL (70 - 100) H 03/08/18 11:12 Calcium 7.6 mg/dL (8.5-10.3) L 03/08/18 09:48 Magnesium 1.7 mg/dL (1.7-2.8) 03/08/18 09:48 Total Bilirubin 1.3 mg/dL (0.2-1.0) H 03/07/18 05:46 AST 21 IU/L (10-42) 03/07/18 05:46 ALT 38 IU/L (10-60) 03/07/18 05:46 Alkaline Phosphatase 71 IU/L (42-121) 03/07/18 05:46 Total Protein 6.2 g/dL (6.7-8.2) L 03/07/18 05:46 Albumin 2.6 g/dL (3.2-5.5) L 03/07/18 05:46 Globulin 3.6 g/dL (2.1-4.2) 03/07/18 05:46 Albumin/Globulin Ratio 0.7 (1.0-2.2) L 03/07/18 05:46 Amylase 34 U/L (28-100) 03/07/18 05:46 Lipase 22 U/L (22-51) 03/07/18 05:46 Urine Color DARK YELLOW 03/04/18 10:02 Urine Clarity CLEAR (CLEAR) 03/04/18 10:02 Urine pH 5.5 PH (5.0-7.5) 03/04/18 10:02 Ur Specific [place] >=1.030 (1.002-1.030) H 03/04/18 10:02 Urine Protein >=300 mg/dL (NEGATIVE) 03/04/18 10:02 Urine Glucose (UA) >=1000 mg/dL (NEGATIVE) H 03/04/18 10:02 Urine Ketones 15 mg/dL (NEGATIVE) H 03/04/18 10:02 Urine Occult Blood LARGE (NEGATIVE) H 03/04/18 10:02 Urine Nitrite NEGATIVE (NEGATIVE) 03/04/18 10:02 Urine Bilirubin NEGATIVE (NEGATIVE) 03/04/18 10:02 Urine Urobilinogen 0.2 (NORMAL) E.U./dL (NORMAL) 03/04/18 10:02 Ur Leukocyte Esterase NEGATIVE (NEGATIVE) 03/04/18 10:02 Urine RBC 6-10 /HPF (0-5) H 03/04/18 10:02 Urine WBC 0-3 /HPF (0-3) 03/04/18 10:02 Ur Squamous Epith Cells FEW Squamous (<= Few) 03/04/18 10:02 Urine Bacteria Few /HPF (None Seen) 03/04/18 10:02 Urine Casts 0-2 Fine Granular /LPF 03/04/18 10:02 Ur Microscopic Review INDICATED 03/04/18 10:02 Urine Culture Comments NOT INDICATED 03/04/18 10:02
[2018-03-08] MEDS ORDERED: LACTATED RINGERS 1,000 ML IV SCH (13:58)
[2018-03-08 14:26] LABS: ALBUMIN 2.6 g/dL (3.2-5.5); BILIRUBIN,DIRECT 0.2 mg/dL (0.1-0.5); BILIRUBIN,TOTAL 1.1 mg/dL (0.2-1.0); TOTAL PROTEIN 6.7 g/dL (6.7-8.2)
[2018-03-08] MEDS ORDERED: POTASSIUM CHLORIDE INJ 40 MEQ in SODIUM CHLORIDE 0.9% 480 ML IV SCH (14:30)
[2018-03-08] MEDS: HYDROcod/ACETAM 5/325 MG TABLET PO PRN ×2 (17:37→22:53)
[2018-03-08] MEDS: SACCHAROMYCES BOULARDII 250 MG CAPSULE PO SCH (17:37)
[2018-03-09] MEDS: KETOROLAC 15 MG/ML VIAL IVP PRN ×2 (01:33→07:49)
[2018-03-09] MEDS: SODIUM CHLORIDE FLUSH 0.9% 10 ML SYRINGE IVP SCH ×2 (01:39→08:44)
[2018-03-09] MEDS: ENALAPRILAT 1.25 MG/ML VIAL IVP SCH ×2 (02:52→05:55)
[2018-03-09 05:22] LABS: BASOPHILS # (AUTO) 0.2 10^3/uL (0.0-0.1); BASOPHILS % (AUTO) 0.9 %; EOSINOPHILS # (AUTO) 0.3 10^3/uL (0.0-0.7); EOSINOPHILS % (AUTO) 1.8 %; HGB - HEMOGLOBIN 12.8 g/dL (14.0-18.0); LYMPHOCYTES # (AUTO) 1.7 10^3/uL (1.5-3.5); LYMPHOCYTES % (AUTO) 9.4 %; MEAN CORPUSCULAR HEMOGLOBIN 28.7 pg (27.0-31.0); MEAN CORPUSCULAR HGB CONC 33.1 g/dL (32.0-36.0); MEAN CORPUSCULAR VOLUME 86.9 fL (80.0-94.0); MEAN PLATELET VOLUME 7.5 fL (7.4-11.4); MONOCYTES # (AUTO) 1.5 10^3/uL (0.0-1.0); MONOCYTES % (AUTO) 8.6 %; NEUTROPHILS # (AUTO) 14.3 10^3/uL (1.5-6.6); NEUTROPHILS % (AUTO) 79.3 %; PLT - PLATELET COUNT 255 10^3/uL (130-450); RED BLOOD COUNT 4.45 10^6/uL (4.70-6.10); RED CELL DISTRIBUTION WIDTH 13.2 % (12.0-15.0)
[2018-03-09 05:32] LABS: CALCIUM 7.6 mg/dL (8.5-10.3); CREATININE 0.7 mg/dL (0.6-1.2)
[2018-03-09] MEDS: PIPERACILLIN/TAZOBACTAM 3.375 GM in SODIUM CHLORIDE 0.9% MINIBAG 100 ML IV SCH (06:13)
[2018-03-09] MEDS: HYDROcod/ACETAM 5/325 MG TABLET PO PRN (06:13)
[2018-03-09] MEDS: SODIUM CHLORIDE FLUSH 0.9% 10 ML SYRINGE IVP PRN (07:02)
[2018-03-09] MEDS: MORPHINE 2 MG/ML CARPUJECT IVP PRN (07:02)
[2018-03-09 07:28] VITALS: BP 163/83
--- NOTE | 2018-03-09 07:48 | Discharge Plan ---
Discharge Plan Disposition: Home, Self Care Condition: Stable Prescriptions: HYDROcod/ACETAM 5/325 [[place] 5/325] 1 tab PO Q6HR PRN #12 tablet PRN Reason: Pain amLODIPine [Norvasc] 5 mg PO BID #60 tablet Ketorolac [Toradol] 10 mg PO QPM PRN #7 tablet PRN Reason: Breakthrough Pain Potassium Chloride [K-Dur] 20 meq PO BID #14 tablet Diet: Diabetic Activity Restrictions: Activity as Tolerated Shower Restrictions: No Instruction Topics: Pancreatitis, ED HTN Established Additional Instructions or Follow Up instructions: You had your gallbladder removed because stones in the gallbladder were blocking and inflaming your pancreas. You will not need any further antibiotic pills. A new prescription for [place] pain medications is prescribed for you and Toradol at bedtime if needed for pain. If you need more pain medications, get these from your doctor. Your blood pressure was under bad control. Therefore, you are now prescribed to take the Amlodipine TWICE a day. Also, please decrease your salt intake for better BP control. Also, your Potassium has been low, so you are being discharged with a prescription for Potassium replacement for 1 week. Please see your Primary Care Provider in 7-10 days in follow-up and for a Potassium blood test. If you have new or worsening symptoms, come to the ER. No Smoking: If you smoke, Please STOP! Call for help. Follow-up with: Aubrey Lora PA-C [Primary Care Provider] -
[2018-03-09] MEDS ORDERED: POTASSIUM CHLORIDE 20 MEQ TABLET PO SCH (08:00)
[2018-03-09] MEDS: LORATADINE 10 MG TABLET PO SCH (08:39)
[2018-03-09] MEDS: SACCHAROMYCES BOULARDII 250 MG CAPSULE PO SCH (08:40)
[2018-03-09] MEDS: LIDOCAINE PATCH 5% TOP SCH (08:40)
[2018-03-09] MEDS: amLODIPine 5 MG TABLET PO SCH (08:42)
[2018-03-09] MEDS: INSULIN ASPART 300 UNIT/3 ML PEN SUBQ SCH (08:43)
[2018-03-09] MEDS ORDERED: ASPIRIN CHEW 81 MG TABLET PO SCH (09:00)
--- NOTE | 2018-03-09 09:07 | PROVIDER PROGRESS NOTE ---
Subjective - Prog Note Date Prog Note Date: 03/09/18 Prog Note Time: 09:06 - Subjective Pt reports feeling: Improved (Pt reports little to no abdominal pain. Tolerating diet and ambulating.) Objective - Vital Signs/Intake & Output Vital Signs: Vital Signs x48h Temp Pulse Resp BP Pulse Ox 03/09/18 07:27 36.9 C 90 18 163/83 H 94 03/09/18 07:00 167/91 H 03/09/18 06:44 168/88 H 03/09/18 06:43 175/89 H 03/09/18 06:21 179/92 H 03/09/18 06:15 90 181/90 H 03/09/18 06:10 86 174/92 H 03/09/18 06:06 89 175/93 H 03/09/18 06:00 92 162/99 H 03/09/18 05:59 92 162/99 H 03/09/18 05:47 36.9 C 91 17 177/95 H 95 Intake & Output: Intake & Output 03/06/18 03/07/18 03/08/18 03/09/18 23:59 23:59 23:59 23:59 Intake Total 4527.084 3702.084 3740.000 460 Output Total 300 750 400 Balance 4527.084 3402.084 2990.000 60 - Objective General Appearance: positive: No acute distress Eyes Bilateral: positive: Normal inspection ENT: positive: ENT inspection nml Neck: positive: Nml inspection Respiratory: positive: Chest non-tender Abdomen: positive: Non-tender Back: positive: Nml inspection Skin: positive: Color nml Extremities: positive: Non-tender Neurologic/Psychiatric: positive: Oriented x3 - Lab Results Fish Bones: 03/09/18 05:10 03/09/18 05:10 Other Labs: Lab Results x24hrs 03/09/18 03/09/18 03/09/18 Range/Units 07:20 05:10 05:10 WBC 18.0 H (4.8-10.8) x10^3/uL RBC 4.45 L (4.70-6.10) 10^6/uL Hgb 12.8 L (14.0-18.0) g/dL Hct 38.7 L (42.0-52.0) % MCV 86.9 (80.0-94.0) fL MCH 28.7 (27.0-31.0) pg MCHC 33.1 (32.0-36.0) g/dL RDW 13.2 (12.0-15.0) % Plt Count 255 (130-450) 10^3/uL MPV 7.5 (7.4-11.4) fL Neut # (Auto) 14.3 H Lymph # (Auto) 1.7 [place] # (Auto) 1.5 H Eos # (Auto) 0.3 Baso # (Auto) 0.2 H Absolute Nucleated RBC 0.01 Total Counted Band Neuts % (Manual) (0 - 10) % Reactive Lymphs % (Man) % Abnorm Lymph % (Manual) % Myelocytes % ( - 0) % Nucleated RBC % 0.0 Neutrophils # (Manual) (1.5-6.6) 10^3/uL Lymphocytes # (Manual) (1.5-3.5) 10^3/uL Monocytes # (Manual) (0.0-1.0) 10^3/uL Eosinophils # (Manual) (0-0.7) 10^3/uL Basophils # (Manual) (0-0.1) 10^3/uL Differential Comment Manual Slide Review RBC Morph Micro Appear (NORMAL) Sodium 138 (135-145) mmol/L Potassium 3.2 L (3.5-5.0) mmol/L Chloride 104 (101-111) mmol/L Carbon Dioxide 25 (21-32) mmol/L Anion Gap 9.0 (6-13) BUN 10 (6-20) mg/dL Creatinine 0.7 (0.6-1.2) mg/dL Estimated GFR (MDRD) 123 (>89) Glucose 148 H (70-100) mg/dL POC Whole Bld Glucose 137 H (70 - 100) mg/dL Calcium 7.6 L (8.5-10.3) mg/dL Magnesium (1.7-2.8) mg/dL Total Bilirubin (0.2-1.0) mg/dL Direct Bilirubin (0.1-0.5) mg/dL AST (10-42) IU/L ALT (10-60) IU/L Alkaline Phosphatase (42-121) IU/L Total Protein (6.7-8.2) g/dL Albumin (3.2-5.5) g/dL Globulin (2.1-4.2) g/dL 03/08/18 03/08/18 03/08/18 Range/Units 21:02 16:37 11:12 WBC (4.8-10.8) x10^3/uL RBC (4.70-6.10) 10^6/uL Hgb (14.0-18.0) g/dL Hct (42.0-52.0) % MCV (80.0-94.0) fL MCH (27.0-31.0) pg MCHC (32.0-36.0) g/dL RDW (12.0-15.0) % Plt Count (130-450) 10^3/uL MPV (7.4-11.4) fL Neut # (Auto) Lymph # (Auto) [place] # (Auto) Eos # (Auto) Baso # (Auto) Absolute Nucleated RBC Total Counted Band Neuts % (Manual) (0 - 10) % Reactive Lymphs % (Man) % Abnorm Lymph % (Manual) % Myelocytes % ( - 0) % Nucleated RBC % Neutrophils # (Manual) (1.5-6.6) 10^3/uL Lymphocytes # (Manual) (1.5-3.5) 10^3/uL Monocytes # (Manual) (0.0-1.0) 10^3/uL Eosinophils # (Manual) (0-0.7) 10^3/uL Basophils # (Manual) (0-0.1) 10^3/uL Differential Comment Manual Slide Review RBC Morph Micro Appear (NORMAL) Sodium (135-145) mmol/L Potassium (3.5-5.0) mmol/L Chloride (101-111) mmol/L Carbon Dioxide (21-32) mmol/L Anion Gap (6-13) BUN (6-20) mg/dL Creatinine (0.6-1.2) mg/dL Estimated GFR (MDRD) (>89) Glucose (70-100) mg/dL POC Whole Bld Glucose 165 H 125 H 136 H (70 - 100) mg/dL Calcium (8.5-10.3) mg/dL Magnesium (1.7-2.8) mg/dL Total Bilirubin (0.2-1.0) mg/dL Direct Bilirubin (0.1-0.5) mg/dL AST (10-42) IU/L ALT (10-60) IU/L Alkaline Phosphatase (42-121) IU/L Total Protein (6.7-8.2) g/dL Albumin (3.2-5.5) g/dL Globulin (2.1-4.2) g/dL 03/08/18 03/08/18 03/08/18 Range/Units 09:48 09:48 08:34 WBC 20.5 H (4.8-10.8) x10^3/uL RBC 4.28 L (4.70-6.10) 10^6/uL Hgb 12.2 L (14.0-18.0) g/dL Hct 36.2 L (42.0-52.0) % MCV 84.8 (80.0-94.0) fL MCH 28.5 (27.0-31.0) pg MCHC 33.6 (32.0-36.0) g/dL RDW 13.2 (12.0-15.0) % Plt Count 279 (130-450) 10^3/uL MPV 7.3 L (7.4-11.4) fL Neut # (Auto) Not Reportable Lymph # (Auto) Not Reportable [place] # (Auto) Not Reportable Eos # (Auto) Not Reportable Baso # (Auto) Not Reportable Absolute Nucleated RBC Not Reportable Total Counted 100 Band Neuts % (Manual) 4 (0 - 10) % Reactive Lymphs % (Man) 7 % Abnorm Lymph % (Manual) 0 % Myelocytes % 1 H ( - 0) % Nucleated RBC % Not Reportable Neutrophils # (Manual) 16.8 H (1.5-6.6) 10^3/uL Lymphocytes # (Manual) 2.7 (1.5-3.5) 10^3/uL Monocytes # (Manual) 0.8 (0.0-1.0) 10^3/uL Eosinophils # (Manual) 0.0 (0-0.7) 10^3/uL Basophils # (Manual) 0.0 (0-0.1) 10^3/uL Differential Comment MANUAL DIFFERENTIAL Manual Slide Review Indicated RBC Morph Micro Appear 1+ ANISOCYTOSIS (NORMAL) Sodium 138 (135-145) mmol/L Potassium 3.2 L (3.5-5.0) mmol/L Chloride 104 (101-111) mmol/L Carbon Dioxide 23 (21-32) mmol/L Anion Gap 11.0 (6-13) BUN 13 (6-20) mg/dL Creatinine 0.8 (0.6-1.2) mg/dL Estimated GFR (MDRD) 106 (>89) Glucose 167 H (70-100) mg/dL POC Whole Bld Glucose (70 - 100) mg/dL Calcium 7.6 L (8.5-10.3) mg/dL Magnesium 1.7 (1.7-2.8) mg/dL Total Bilirubin 1.1 H (0.2-1.0) mg/dL Direct Bilirubin 0.2 (0.1-0.5) mg/dL AST 42 (10-42) IU/L ALT 51 (10-60) IU/L Alkaline Phosphatase 81 (42-121) IU/L Total Protein 6.7 (6.7-8.2) g/dL Albumin 2.6 L (3.2-5.5) g/dL Globulin 4.1 (2.1-4.2) g/dL Assessment/Plan - Problem List (1) Gallstone pancreatitis Impression: Pt recovering well from surgery. Clear for discharge.
--- NOTE | 2018-03-11 20:01 | DISCHARGE SUMMARY ---
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 Patient presented with complaints of periumbilical pain, indigestion, 1 episode of vomiting after eating a tuna sandwich. The pain radiated to his back and he started to develop abdominal distention and bloating. Workup in the emergency room revealed that he had cholelithiasis with 2 large calculi, no gallbladder thickening or stranding, but free intra-abdominal fluid around the pancreas and in the dependent pelvis near the spleen and along the left pericolic gutter. His lipase and amylase were elevated consistent with pancreatitis. The patient was admitted for management of the above and had surgical consultation. HOSPITAL COURSE AND DISCHARGE DIAGNOSES 1. Cholelithiasis. The patient underwent lap-cholecystectomy and had good postop pain control using tramadol and morphine. The white count, which was initially elevated at 21, had improved to 17; however, on 03/08/2018 pavan to 20.5 again postoperatively, and therefore he was kept for one additional day to monitor for any fever or other complications. The white count was 18.0 and he was discharged in stable condition on 03/09/2018. 2. Gallstone pancreatitis. The patient was on bowel rest, IV fluids, his elevated lipase of 780 and amylase of 318 improved by the second day. Postop, his diet was advanced which he tolerated this. He was on empiric antibiotics perioperatively, but not discharged on p.o. antibiotics since he had no cholecystitis. 3. History of hemorrhagic stroke with residual hemiparesis. The patient normally has slight difficulty with ambulation, memory and vision. His intake of fluids and diet; however, is normal. His fiance' was present for instructions at discharge, because of his poor memory. 4. Type 2 diabetes mellitus with complications. He was put on a carb- controlled diet and throughout his stay he had fingerstick glucose checks and sliding scale Regular Insulin coverage. 5. Hypokalemia. This was likely from poor p.o. intake during n.p.o. status and this was replaced. 6. Hypertension. His blood pressure was elevated throughout this entire admission and he needed IV Enalaprilat p.r.n. for blood pressure control. He was started on his amlodipine 5 mg daily and then this needed to be increased, just before discharge, to 5 mg b.i.d. He was advised to decrease his salt intake and should have followup of blood pressure on this new management with higher dosing of amlodipine. LABORATORY AND IMAGING: Reviewed and summarized above. ALLERGIES: NONE. MEDICATIONS AT THE TIME OF DISCHARGE: 1. Aspirin 81 mg daily. 2. Lipitor 80 mg nightly. 3. Claritin 10 mg daily p.r.n. 4. Metformin 1000 mg b.i.d. 5. Methocarbamol 500 mg every night. 6. Januvia 100 mg daily. 7. [place] 5/325 mg 1 p.o. every 6 hours. 8. Toradol 10 mg p.o. every evening p.r.n. pain. 9. Amlodipine 5 mg b.i.d. 10. Potassium 20 mEq b.i.d. for 7 days. PHYSICAL EXAMINATION: VITAL SIGNS: Stable. Blood pressure 168/83, pulse of 90, afebrile, room air saturation 94%. HEENT: Unremarkable except for the vision loss of the left eye. NECK: Without JVD or carotid bruits. CHEST: Clear. HEART: Sounds normal. ABDOMEN: Mildly distended, mildly tender over the laparotomy sites, but normal bowel sounds present. No guarding or rebound. EXTREMITIES: No edema. NEUROLOGIC: Left hand weakness, abnormal gait, poor memory, vision loss as described above. FOLLOWUP: He was advised to see his PCP in 7-10 days and he should have a potassium blood test since he was sent home with new potassium replacement. CODE STATUS: FULL CODE. Time required to complete this entire discharge, chart review, patient education, prescription orders, dictation: 60 minutes. cc: NAILA Russell TD: 03/11/2018 19:21 MTDD
== END 2018-03-09 09:15 | disposition home or self-care (01) | DRG 418 ==
LOC: ED 09:34 → MS2 16:25
PROVIDERS: ADMIT Specialist; ATTEND Specialist
PROC: 0FT44ZZ Resection of Gallbladder, Percutaneous Endoscopic Approach (ICD-10-PCS; principal; 2018-03-07 14:30)
DX: K85.10 Biliary acute pancreatitis without necrosis or infection (principal); I69.354 Hemiplegia and hemiparesis following cerebral infarction affecting left non-dominant side; K80.51 Calculus of bile duct without cholangitis or cholecystitis with obstruction; E11.8 Type 2 diabetes mellitus with unspecified complications; E11.65 Type 2 diabetes mellitus with hyperglycemia; I69.398 Other sequelae of cerebral infarction; I69.311 Memory deficit following cerebral infarction; H54.62 Unqualified visual loss, left eye, normal vision right eye; E66.9 Obesity, unspecified; I10 Essential (primary) hypertension; E87.6 Hypokalemia; E78.00 Pure hypercholesterolemia, unspecified; K21.9 Gastro-esophageal reflux disease without esophagitis; F32.9 Major depressive disorder, single episode, unspecified; F41.9 Anxiety disorder, unspecified; M19.90 Unspecified osteoarthritis, unspecified site; Z87.891 Personal history of nicotine dependence; Z68.30 Body mass index [BMI] 30.0-30.9, adult
CPT/HCPCS: 36415; 74177; 74181; 76705; 80048; 80053; 80076; 81001; 81003; 82150; 83036; 83690; 83735; 85025; 87086; 96361; 96365; 96375; 96376; 99284